=== PATIENT | female | born 1955 | race Caucasian/White ===

== ENCOUNTER → 2019-08-19 12:33 | Outpatient (CLI) | payer OTHER, SELFPAY ==
--- NOTE | 2019-08-19 12:36 | DI.RAD.S_ITS ---
PROCEDURE: XR HIP W PEL IF DONE RT 2V INDICATIONS: HIP PAIN TECHNIQUE: 2 views of the hip were acquired. COMPARISON: None. FINDINGS: Bones: No fractures or dislocations. Mild to moderate joint space narrowing. Mild sclerosis of the superior acetabular roof. Small osteophytes. No suspicious bony lesions. The visualized pelvic ring appears intact. Soft tissues: No suspicious soft tissue calcifications or masses. IMPRESSION: Mild to moderate degenerative change of the right hip. Dictated by: Conrado Huerta M.D. on 08/19/2019 at 13:27 Approved by: Conrado Huerta M.D. on 08/19/2019 at 13:28
== END ==
PROVIDERS: Visit Provider Nurse Practitioner Family
DX: M25.551 Pain in right hip (principal)
CPT/HCPCS: 73502

== ENCOUNTER → 2019-09-01 08:04 | Outpatient (CLI) | payer OTHER, SELFPAY ==
[2019-09-01 09:09] LABS: Hematocrit 37.5 % (36-46); Hemoglobin 13.1 g/dL (12.0-16.0); Mean Corpuscular Hemoglobin 31.6 PG (26-34); Mean Corpuscular Volume 90.2 fL (80-100); Platelet Count 185 X10^3/uL (150-400); Red Blood Cell Count 4.15 X10^6/uL (4.0-5.2); Red Cell Distribution Width 13.7 % (11.6-14.8)
[2019-09-01 09:34] LABS: Alanine Aminotransferase 28 IU/L (9-52); Albumin Globulin Ratio 1.4 (1.0-2.8); Alkaline Phosphatase 48 U/L (38-126); Aspartate Aminotransferase 31 IU/L (14-36); BUN Creatinine Ratio 25.7 (6-22); Bilirubin Total 0.6 mg/dL (0.2-1.3); Blood Urea Nitrogen 18 mg/dL (7-17); Calcium 9.3 mg/dL (8.4-10.2); Carbon Dioxide 30 mmol/L (22-32); Chloride 107 mmol/L (98-107); Cholesterol 161 mg/dL (140-199); Estimated Glomerular Filt Rate > 60.0 mL/min (>60); Globulin 2.8 g/dL (1.7-4.1); Glucose 74 mg/dL (80-110); HDL Cholesterol 53 mg/dL (40-60); HEMOLYSIS < 15 (0-50); LDL Cholesterol Calculated 95 mg/dL (<100); Potassium 4.2 mmol/L (3.4-5.1); Sodium 141 mmol/L (137-145); Total Protein 6.8 g/dL (6.3-8.2); Triglycerides 64 mg/dL (35-150)
== END ==
PROVIDERS: Visit Provider Nurse Practitioner Family
DX: Z00.00 Encounter for general adult medical examination without abnormal findings (principal); Z13.6 Encounter for screening for cardiovascular disorders
CPT/HCPCS: 36415; 80053; 80061; 85027

== ENCOUNTER → 2019-09-23 15:52 | Outpatient (CLI) | payer OTHER, SELFPAY ==
--- NOTE | 2019-09-23 15:55 | DI.MG.S_ITS ---
BILATERAL DIGITAL SCREENING MAMMOGRAM 3D/2D WITH CAD: 09/23/2019 CLINICAL: Routine screening. Comparison is made to exams dated: 02/11/2012 mammogram and 09/14/2009 mammogram - [facility]. There are scattered fibroglandular elements in both breasts. Current study was also evaluated with a Computer Aided Detection (CAD) system. No significant masses, calcifications, or other findings are seen in either breast. There has been no significant interval change. IMPRESSION: NEGATIVE There is no mammographic evidence of malignancy. A 1 year screening mammogram is recommended. This exam was interpreted at Station ID: [id number]. NOTE: For mammograms, a report in lay terms will be sent to the patient. Approximately 15% of breast malignancies will not be visualized mammographically. In the management of a palpable breast mass, a negative mammogram must not discourage biopsy of a clinically suspicious lesion. Electronically Signed By: May man/darline:09/23/2019 16:26:24 letter sent: Normal Exam ACR BI-RADS Category 1: Negative [id number]
== END ==
PROVIDERS: Visit Provider Nurse Practitioner Family
DX: Z12.31 Encounter for screening mammogram for malignant neoplasm of breast (principal)
CPT/HCPCS: 77063; 77067

== ENCOUNTER 2019-12-29 09:49 | Day surgery (SDC) | payer OTHER, SELFPAY ==
[2019-12-29] VITALS (10 sets, daily range): BP systolic 78–115; BP diastolic 40–69; PULSE 51–79; RESP 10–19; TEMP 36.2–36.8; O2SAT 96–100; BMI 23.9
--- NOTE | 2019-12-29 10:38 | PM.HP.1 ---
History of Present Illness History of Present Illness Date Patient Seen: 12/29/19 Time Patient Seen: 10:38 Chief complaint: [address] SCREENING COLONOSCOPY Narrative: The patient is a woman here for screening colonoscopy. She has never had a colonoscopy Patient History Medical History Ankle pain (Chronic) Chicken pox (Resolved) Foot pain (Chronic ~2016) Herpes (Inactive) Measles (Inactive) Mumps (Resolved) Surgical History Anesthesia (Resolved) History of tubal ligation (Resolved ~1991) Family & Social History Tobacco & Substance use: Smoking Status Never smoker alcohol intake current Meds Home Medications and Allergies Allergies Allergy/AdvReac Type Severity Reaction Status Date / Time No Known Drug Allergies Allergy Verified 12/29/19 10:21 Review of Systems Review of Systems ROS: Yes All systems reviewed with the patient and are negative except as otherwise documented Exam Narrative Exam Narrative: Pleasant cooperative patient no apparent distress. Lungs are clear to auscultation. No rales or rhonchi. Heart regular rate and rhythm no murmur gallop. Abdomen is soft nontender without mass. No obvious hernias. Patient is alert and oriented x3. Assessment & Plan Assessment & Plan narrative: The patient for a screening colonoscopy. I have discussed the procedure with them. Risks of bleeding, perforation which would necessitate major operation, failure to find remove all lesions, the potential tattoo were all discussed. All questions were answered. They wished to proceed.
[2019-12-29] MEDS: SODIUM CHLORIDE 0.9% 1,000 ML 200 ML IV (10:39)
--- NOTE | 2019-12-29 10:39 | PM.PREOP ---
Pre-operative Note Interval Note History & Physical reviewed/Exam performed by Physician: Yes Changes to H&P: No ASA Class (for procedural sedation): I
[2019-12-29] MEDS: fentaNYL 250 MCG/5 ML INJ IV (11:00)
[2019-12-29] MEDS: MIDAZOLAM 5 MG/ML VIAL 4 MG IV (11:00)
--- NOTE | 2019-12-29 11:18 | PM.OP.ENDO ---
Operative Date/Time/Diagnoses Date of procedure: 12/29/19 Time of procedure: 11:18 Pre-op diagnosis: Screening examination. This is her 1st colonoscopy. Post-op diagnosis: same (Diverticulosis) Procedure & Clinicians Study performed: Colonoscopy Same procedure as scheduled: Yes Indications: Screening Surgeon: Sadi Arango Procedure Notes SCOAP/Timeout: Performed Procedure in detail: The patient was placed in the left lateral decubitus position and underwent IV sedation directed by the surgeon consisting of fentanyl and Versed. Digital exam was remarkable for decreased sphincter tone.. The scope was inserted and advanced through the rectum into the sigmoid, descending, transverse, and ascending colon. The patient had extensive sigmoid diverticulosis. Her colon was quite tortuous through this region.. The cecum was reached identified by the ileocecal valve and the appendiceal opening. The ileocecal valve was not cannulated. The scope was gradually brought out. No Polyps were found. The scope ultimately was retroflexed in the rectum. The appearance was normal. The scope was removed and the patient tolerated the procedure well. The prep was good. Scope withdrawal time: 9-1/2 minutes Sedation minutes: 26 Findings: diverticulosis Specimen(s): none sent Complications: none Post-procedure Recommendations: Colonscopy in 10 years Follow up: as needed Disposition: PACU
--- NOTE | 2019-12-29 11:44 | SUR.PHASEI ---
Patient sitting up, awake but drowsy. Tolerating PO fluids without difficulty. Denies CP or SOB, denies abdominal pain. BP 106/63, MAP 73.
== END 2019-12-29 12:24 | disposition home or self-care (01) ==
PROVIDERS: PCP Nurse Practitioner Family; Referring Provider Specialist; Visit Provider Specialist
PROC: 0DJD8ZZ Inspection of Lower Intestinal Tract, Via Natural or Artificial Opening Endoscopic (ICD-10-PCS; CPT 45378; principal; 2019-12-29 10:45)
DX: Z12.11 Encounter for screening for malignant neoplasm of colon (principal); K57.30 Diverticulosis of large intestine without perforation or abscess without bleeding; K63.89 Other specified diseases of intestine
CPT/HCPCS: 45378; 99152; 99153; J2250; J3010

== ENCOUNTER → 2020-11-29 11:08 | Outpatient (CLI) | payer OTHER, SELFPAY ==
[2020-11-29] MEDS: COVID-19 VACC #1, MRNA(MOD) 100 MCG/0.5 ML VIAL IM (11:12)
== END ==
PROVIDERS: PCP Nurse Practitioner Family; Visit Provider Internal Medicine
DX: Z23 Encounter for immunization (principal)
CPT/HCPCS: 0011A; 91301

== ENCOUNTER → 2020-12-27 11:21 | Outpatient (CLI) | payer OTHER, SELFPAY ==
[2020-12-27] MEDS: COVID-19 VACC #2, MRNA(MOD) 100 MCG/0.5 ML VIAL IM (11:31)
== END ==
PROVIDERS: PCP Nurse Practitioner Family; Visit Provider Internal Medicine
DX: Z23 Encounter for immunization (principal)
CPT/HCPCS: 0012A; 91301

== ENCOUNTER → 2021-01-09 15:12 | Outpatient (CLI) | payer OTHER, SELFPAY | PROVIDERS: PCP Nurse Practitioner Family; Referring Provider Nurse Practitioner Family; Visit Provider Nurse Practitioner Family | DX: M85.851 Other specified disorders of bone density and structure, right thigh (principal); Z78.0 Asymptomatic menopausal state | CPT/HCPCS: 77080 ==

== ENCOUNTER → 2021-01-24 08:15 | Outpatient (CLI) | payer OTHER, SELFPAY ==
[2021-01-24 09:35] LABS: Hematocrit 38.2 % (36-46); Mean Corpuscular HGB Conc 34.1 % (30-36); Mean Corpuscular Hemoglobin 31.5 PG (26-34); Mean Corpuscular Volume 92.4 fL (80-100); Platelet Count 186 X10^3/uL (150-400); Red Blood Cell Count 4.14 X10^6/uL (4.0-5.2); Red Cell Distribution Width 14.1 % (11.6-14.8); White Blood Cell Count 5.2 X10^3/uL (4.5-11.0)
[2021-01-24 09:49] LABS: Alanine Aminotransferase 19 IU/L (<35); Albumin Globulin Ratio 1.4 (1.0-2.8); Alkaline Phosphatase 49 U/L (38-126); Aspartate Aminotransferase 32 IU/L (14-36); BUN Creatinine Ratio 27.3 (6-22); Bilirubin Total 0.4 mg/dL (0.2-1.3); Blood Urea Nitrogen 18 mg/dL (7-17); Calcium 9.3 mg/dL (8.4-10.2); Carbon Dioxide 29 mmol/L (22-32); Chloride 105 mmol/L (98-107); Cholesterol 185 mg/dL (140-199); Estimated Glomerular Filt Rate > 60.0 mL/min (>60); Globulin 2.8 g/dL (1.7-4.1); Glucose 84 mg/dL (80-110); HDL Cholesterol 62 mg/dL (40-60); HEMOLYSIS < 15 (0-50); LDL Cholesterol Calculated 111 mg/dL (<100); Potassium 3.9 mmol/L (3.4-5.1); Sodium 139 mmol/L (137-145); Total Protein 6.8 g/dL (6.3-8.2); Triglycerides 61 mg/dL (35-150)
== END ==
PROVIDERS: PCP Nurse Practitioner Family; Referring Provider Nurse Practitioner Family; Visit Provider Nurse Practitioner Family
DX: Z00.00 Encounter for general adult medical examination without abnormal findings (principal); Z13.6 Encounter for screening for cardiovascular disorders
CPT/HCPCS: 36415; 80053; 80061; 85027

== ENCOUNTER 2021-06-06 14:55 | Emergency (ER) | payer OTHER, SELFPAY ==
[2021-06-06 14:59] VITALS: BP 109/53; PULSE 54; RESP 22; TEMP 36.6; O2SAT 97
--- NOTE | 2021-06-06 15:05 | DI.RAD.S_ITS ---
PROCEDURE: XR TIBIA FIBULA LT 2V INDICATIONS: pain with wtbearing TECHNIQUE: 2 views of the tibia and fibula were acquired. COMPARISON: None. FINDINGS: Bones: No fractures or dislocations. No suspicious bony lesions. Soft tissues: No suspicious soft tissue calcifications or masses. IMPRESSION: No trauma found. Dictated by: Bernardo Goetz M.D. on 06/06/2021 at 16:33 Approved by: Bernardo Goetz M.D. on 06/06/2021 at 16:33
--- NOTE | 2021-06-06 18:27 | ED_ITS ---
HPI - Extremity Injury (Lower) General Chief Complaint: Extremity Injury, Lower Stated Complaint: left leg pain/cannot bear weight Time Seen by Provider: 06/06/21 18:09 Source: patient Mode of arrival: Ambulatory History of Present Illness HPI Narrative: Patient is a 65-year-old female here for evaluation of a left leg/knee pain. She states that today she was playing pickleball. Was during 1 of the games when she stepped wrong and afterwards has had discomfort. She states that she has all of the discomfort when she is standing. When she is lying down or not putting pressure on her leg the discomfort is much better and essentially gone. She did not fall. Describes the pain on the back of her leg in the upper portion of her calf. Related Data Home Medications Medication Instructions Recorded Confirmed No Known Home Medications 12/02/20 04/18/21 Allergies Allergy/AdvReac Type Severity Reaction Status Date / Time No Known Drug Allergies Allergy Verified 04/18/21 11:15 Review of Systems Constitutional Constitutional: Reports as per HPI Musculoskeletal Musculoskeletal: Reports as per HPI Integumentary/Breasts Skin/Breast: Reports system reviewed and no additional complaints, except as documented Neurologic Neurologic: Reports system reviewed and no additional complaints, except as documented Hematologic/Lymphatic On Anticoagulants: No Patient History Medical History Ankle pain Bowel incontinence (2009) Chicken pox Depression Encounter for wellness examination in adult (12/09/20) Foot pain (~2016) Herpes Measles Mumps Osteoarthritis (2019) Osteopenia after menopause (02/2021) Post-menopause Surgical History Anesthesia History of tubal ligation (~1991) Social History household members: spouse Smoking Status: Never smoker second hand exposure: No alcohol intake: current substance use type: does not use Smoking Status: Never smoker alcohol intake frequency: holidays/special occasions only Substance Use Type: does not use Exam Initial Vital Signs Initial Vital Signs: Vital Signs Temperature 97.9 F 06/06/21 14:59 Pulse Rate 54 L 06/06/21 14:59 Respiratory Rate 22 06/06/21 14:59 Blood Pressure 109/53 L 06/06/21 14:59 Pulse Oximetry 97 06/06/21 14:59 Const General: cooperative and comfortable HENMT Head: normal to inspection and normocephalic Eyes General: appearance normal, both eyes and all related structures Resp Effort & Inspection: normal respiratory effort Cardio Pulses: dorsalis pedis present on the left Skin General: no rashes or lesions noted Neuro General: patient alert, patient awake, patient oriented x3 and moves all extremities Speech: speech normal Motor: muscle tone normal throughout Sensory Exam: no sensory deficits noted Extrem General: normal to inspection and capillary refill normal Other: Patient is able to do a straight leg raise however it is difficult for her to do so. There does not appear to be any deficits in the quadriceps tendon or the patella tendon. She has discomfort on the upper portion of her calf muscle specifically dorsiflexion of the left leg. Her hamstring tendons appear to be intact. She does have tenderness over the medial hamstring tendon. She has no tenderness with palpation of the patella. No tenderness to palpation of the quadriceps nor patella tendon. No tenderness along the mediolateral joint lines. Her MCL PCL LCL and MCL all seem to be intact with functional testing. Psych Appearance: grossly normal Procedures Orthopedic Splinting/Casting Injury #1: Side: left Lower Extremity Injury Location: knee and lower leg Lower Extremity Immobilizer: knee immobilizer Other Orthopedic Equipment: crutches Post splinting neuro exam: intact Post splinting vascular exam: intact Placed by: Nursing Course Orders Ordered: ED Orders 06/06/21 15:05 XR tibia fibula LT 2V Stat Vital Signs Vital signs: Vital Signs - 8 hr 06/06/21 14:59 Temperature 97.9 F Pulse Rate 54 L Respiratory Rate 22 Blood Pressure 109/53 L Pulse Oximetry 97 MDM - Extremity Injury (Lower) Imaging Data Extremity x-ray #1: Radiologist's Impression: [address] [id number] ReportSigned Patient: Deepak Izaguirre#: [id number]: 10/05cct:[id number]/Sex: 65 / FDate of Service: 06/06/21Loc: EDAccession Number: [id number] Procedure: XR tibia fibula LT 2V Ordering Provider: Rivka Saucedo D.O. PROCEDURE: XR TIBIA FIBULA LT 2V INDICATIONS: pain with wtbearing TECHNIQUE: 2 views of the tibia and fibula were acquired. COMPARISON: None. FINDINGS: Bones: No fractures or dislocations. No suspicious bony lesions. Soft tissues: No suspicious soft tissue calcifications or masses. IMPRESSION: No trauma found. Dictated by: Bernardo Goetz M.D. on 06/06/2021 at 16:33 Approved by: Bernardo Goetz M.D. on 06/06/2021 at 16:33 [facility] Narrative Medical decision making narrative: Patient is neurovascularly intact. There is no fractures noted on the x-ray. The only real positive finding noted on the exam was tenderness along the medial hamstring tendon. Her extensor mechanism appears to be intact. She has no effusion. She was placed in a knee immobilizer and given crutches for her comfort. Will have her contact her primary doctor for follow-up and to discuss further workup to include potential referral to see Physical therapy/have an MRI/Orthopedics. Patient was given return precautions. She expressed understanding agreement. Discharge Plan Departure Patient Disposition: Home Clinical Impression: Knee pain, left Instructions: How to Use Crutches, DI for Knee Pain, How to Use a Knee Immobilizer Activity Restrictions/Additional Instructions: There was no fractures on the x-ray which mean that you can walk on your leg as tolerated. Use the crutches and knee immobilizer as directed. Contact your primary doctor for a follow-up especially if your symptoms do not improve in the next couple days as you will most likely need further evaluation with physical therapy or potentially even an MRI. Return to the emergency department for any new or worsening symptoms Prescriptions: No Action No Known Home Medications RF: 0 Referrals: Rachael Alexander ARNP [Primary Care Provider] -
== END 2021-06-06 19:12 | disposition home or self-care (01) ==
PROVIDERS: Emergency Provider Emergency Medicine; PCP Nurse Practitioner Family
DX: M25.562 Pain in left knee (principal); X50.1XXA Overexertion from prolonged static or awkward postures, initial encounter; Y93.69 Activity, other involving other sports and athletics played as a team or group
CPT/HCPCS: 73590; 99283

== ENCOUNTER 2021-08-17 13:45 | Outpatient (RCR) | payer OTHER, SELFPAY ==
--- NOTE | 2021-05-18 14:41 | PT.OIE ---
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) Pain in unspecified lower leg (05/18/21) Past Medical History (Last Updated 04/18/21 @ 11:42 by NATALIIA Foley) Ankle pain Bowel incontinence (2009) Chicken pox Depression Encounter for wellness examination in adult (12/09/20) Foot pain (~2016) Herpes History of tubal ligation (~1991) Measles Mumps Osteoarthritis (2019) Osteopenia after menopause (02/2021) Post-menopause Past Surgical History (Last Reviewed 12/29/19 @ 10:38 by Sadi Arango MD) Anesthesia History of tubal ligation (~1991) Visit Care Team Role Provider Type NATALIIA Foley Attending Provider Advanced Curb Builder Primary Care Provider Referring Provider Specialty: Family Practice Address: [address] [place] [address] Email: [email or web address] Physical Therapy Initial Evaluation PT-OP-A Visit Information Start: 05/18/21 13:45 Freq: Status: Active Protocol: Document 05/18/21 13:45 AMB (Rec: 05/21/21 14:41 AMB [email or web address]) Out-Patient Physical Therapy Visit Information Visit Information Visit Type Initial Evaluation Visit Start Time 13:45 Visit Stop Time 14:30 Total Visit Minutes 45 Visit Number 1 PT-OP-B Current Condition Start: 05/18/21 13:45 Freq: Status: Active Protocol: Document 05/18/21 13:45 AMB (Rec: 05/18/21 13:58 AMB [id number]) Current Condition History of Current Condition Onset Date A month Current Complaints bilateral gastelum/lateral thigh pain History of Current Condition Bilateral leg pain seems to be associated with pickle ball. Stopped for a week and that seemed to help. Pain has been going on for at least a month . A month ago couldn't walk for a couple days. Has been playing pickleball for a year for 2-3 times per week, then increased to 4-5x/week and that's when pain started, doesn't hurt during pickle ball, but a few hours later hurts, variable nature sometimes hurts sometimes doesn't. Getting up from sitting/ squatting are quite challenging right now. Outside of thighs and shins, shins are the worst, both left and right. Prior Treatments and Tests Tried new shoes. Treatment Goals Patient/Caregiver Goals Play pickleball without bilateral leg pain Prior Functional Status Baseline Function- ADL's Independent Baseline Function- Mobility Independent Current Functional Impairments (Reported) Functional Limitations- ADL's Difficulty moving from sit to stand especially after having been sitting for a while Personal Factors Other Personal Factors That May Effect history of plantar fasciitis, Therapy/Recovery over pronation PT-OP-C Subjective Start: 05/18/21 13:45 Freq: Status: Active Protocol: Document 05/18/21 13:45 AMB (Rec: 05/21/21 14:41 AMB [email or web address]) Patient Questionnaires Lower Extremity Functional Scale LEFS Score 44 LEFS Impairment 40 to 59% Impaired (Score 32- 47) PT-OP-F Manual Assessment Start: 05/18/21 13:45 Freq: Status: Active Protocol: Document 05/18/21 13:45 AMB (Rec: 05/21/21 14:41 AMB [email or web address]) Manual Assessments Soft Tissue Assessment Soft Tissue Mobility Assessment Tenderness over tibialis anterior, calves, and IT band, worst at tibialis anterior PT-OP-G Mobility & Gait Start: 05/18/21 13:45 Freq: Status: Active Protocol: Document 05/18/21 13:45 AMB (Rec: 05/21/21 14:41 AMB [email or web address]) OP Gait Assessment Comments Gait Comments Over pronation in standing PT-OP-K Range of Motion Start: 05/18/21 13:45 Freq: Status: Active Protocol: Document 05/18/21 13:45 AMB (Rec: 05/21/21 14:41 AMB [email or web address]) Ankle and Foot Goniometric Range of Motion Ankle and Foot ROM Limitations Comments Good hip, knee and ankle mobility throughout PT-OP-M Strength Start: 05/18/21 13:45 Freq: Status: Active Protocol: Document 05/18/21 13:45 AMB (Rec: 05/21/21 14:41 AMB [email or web address]) Hip Strength Hip Manual Muscle Testing Right Flexion (L2) 4+ Good+ Extension (S1) 4 Good Abduction 4 Good Left Flexion (L2) 4+ Good+ Extension (S1) 4+ Good+ Abduction 4 Good Ankle/Foot Strength Ankle and Foot Manual Muscle Testing Right Dorsiflexion (L4) 4- Good- Plantarflexion (S1) 4 Good Inversion 4 Good Eversion (S1) 4 Good Comments mild discomfort with dorsiflexion bilaterally Left Dorsiflexion (L4) 4- Good- Plantarflexion (S1) 4 Good Inversion 4 Good Eversion (S1) 4 Good PT-OP-T Assessment and Plan Start: 05/18/21 13:45 Freq: Status: Active Protocol: Document 05/18/21 13:45 AMB (Rec: 05/21/21 14:41 AMB [email or web address]) Physical Therapy Assessment Rehab Potential Rehabilitation Potential Good Evaluation Complexity Number of Personal Factors/Comorbidities 1-2 Number of Body Systems Impaired 4 or More Clinical Presentation at Evaluation Stable Impairments Impairments Pain,Posture,Soft Tissue Mobility,Strength Goals Three Impairment HEP Short Term Goal (STG) Deepak will be independent and consistent with her HEP to stretch and strengthen her bilateral LEs. STG Duration 4 weeks Two Impairment Mobility Short Term Goal (STG) Deepak will move from sit to stand with 2/10 pain or less. STG Duration 4 weeks [facility] Goal (LTG) Deepak will move from sit to stand without pain in her lower legs. LTG Duration 8 weeks One Impairment Pain Short Term Goal (STG) Deepak will play pickleball 4x/ week without an increase in her baseline pain. STG Duration 4 weeks Assessment Summary Assessment Deepak attends physial therapy with bilateral pain and tightnes in anterior tibialis with some pain and tightness in bilateral calves and IT bands. Her joint mobility looks good, if not slightly hypermobile, especially with over pronation in her feet. She would benefit from PT to reduce the inflammation most likely caused by repetetive strain from her sporting activities, and then to strengthen, especially at lateral hips, so that she can return to exercise with less pain. Physical Therapy Plan Frequency and Duration Frequency of Treatment 2x/Week Duration of Treatment 8 weeks Plan of Care Start Date 05/18/21 Plan of Care End Date 07/13/21 Therapeutic Interventions Therapeutic Interventions Gait Training,Home Exercise Program,Manual Therapy, Neuromuscular Re-education, Self-Care/Home Management,Soft Tissue Mobilization, Therapeutic Activities, Therapeutic Exercises Modalities Cold Pack/Ice Massage,Electric Stimulation,Hot Packs, Ultrasound Next Visit Focus/Plan Next Note Type Treatment Note Next Visit Plan Follow up on tibialis anterior and IT band stretches
--- NOTE | 2021-05-18 14:42 | PT.OPPOC ---
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) Pain in unspecified lower leg (05/18/21) Visit Care Team Role Provider Type NATALIIA Foley Attending Provider Advanced Manager Pulmonary Primary Care Provider Referring Provider Specialty: Family Practice Address: [address] [place] [address], [id number] Email: [email or web address] Plan Of Care PT-OP-T Assessment and Plan Start: 05/18/21 13:45 Freq: Status: Active Protocol: Document 05/18/21 13:45 AMB (Rec: 05/21/21 14:41 AMB [email or web address]) Physical Therapy Assessment Rehab Potential Rehabilitation Potential Good Evaluation Complexity Number of Personal Factors/Comorbidities 1-2 Number of Body Systems Impaired 4 or More Clinical Presentation at Evaluation Stable Impairments Impairments Pain,Posture,Soft Tissue Mobility,Strength Goals Three Impairment HEP Short Term Goal (STG) Deepak will be independent and consistent with her HEP to stretch and strengthen her bilateral LEs. STG Duration 4 weeks Two Impairment Mobility Short Term Goal (STG) Deepak will move from sit to stand with 2/10 pain or less. STG Duration 4 weeks Funeral Assistant Goal (LTG) Deepak will move from sit to stand without pain in her lower legs. LTG Duration 8 weeks One Impairment Pain Short Term Goal (STG) Deepak will play pickleball 4x/ week without an increase in her baseline pain. STG Duration 4 weeks Assessment Summary Assessment Deepak attends physial therapy with bilateral pain and tightnes in anterior tibialis with some pain and tightness in bilateral calves and IT bands. Her joint mobility looks good, if not slightly hypermobile, especially with over pronation in her feet. She would benefit from PT to reduce the inflammation most likely caused by repetetive strain from her sporting activities, and then to strengthen, especially at lateral hips, so that she can return to exercise with less pain. Physical Therapy Plan Frequency and Duration Frequency of Treatment 2x/Week Duration of Treatment 8 weeks Plan of Care Start Date 05/18/21 Plan of Care End Date 07/13/21 Therapeutic Interventions Therapeutic Interventions Gait Training,Home Exercise Program,Manual Therapy, Neuromuscular Re-education, Self-Care/Home Management,Soft Tissue Mobilization, Therapeutic Activities, Therapeutic Exercises Modalities Cold Pack/Ice Massage,Electric Stimulation,Hot Packs, Ultrasound Next Visit Focus/Plan Next Note Type Treatment Note Next Visit Plan Follow up on tibialis anterior and IT band stretches Plan of Care Dates Plan of Care Start Date 05/18/21 Plan of Care End Date 07/13/21 Electronically Signed by: Teri Anne, PT 05/21/21 [id number] Please Sign and Return: I have reviewed this Plan of Care and certify that the skilled therapy services above are required to meet the patient?s needs. Physician Signature Date Printed Name and Credentials Clinical Instructor Signature Printed Name and Credentials
--- NOTE | 2021-05-24 09:25 | PT.OTN ---
Current Diagnoses Iliotibial band syndrome, unspecified leg (05/24/21) Anterior tibial syndrome, unspecified leg (05/24/21) Pain in unspecified lower leg (05/24/21) Physical Therapy Treatment Note PT-OP-A Visit Information Start: 05/18/21 13:45 Freq: Status: Active Protocol: Document 05/24/21 08:15 AMB (Rec: 05/24/21 08:52 AMB [id number]) Out-Patient Physical Therapy Visit Information Visit Information Visit Type Treatment Note Visit Start Time 08:15 Visit Stop Time 09:00 Total Visit Minutes 45 Visit Number 2 PT-OP-B Current Condition Start: 05/18/21 13:45 Freq: Status: Active Protocol: Document 05/18/21 13:45 AMB (Rec: 05/18/21 13:58 AMB [id number]) Current Condition History of Current Condition Onset Date A month Current Complaints bilateral gastelum/lateral thigh pain History of Current Condition Bilateral leg pain seems to be associated with pickle ball. Stopped for a week and that seemed to help. Pain has been going on for at least a month . A month ago couldn't walk for a couple days. Has been playing pickleball for a year for 2-3 times per week, then increased to 4-5x/week and that's when pain started, doesn't hurt during pickle ball, but a few hours later hurts, variable nature sometimes hurts sometimes doesn't. Getting up from sitting/ squatting are quite challenging right now. Outside of thighs and shins, shins are the worst, both left and right. Prior Treatments and Tests Tried new shoes. Treatment Goals Patient/Caregiver Goals Play pickleball without bilateral leg pain Prior Functional Status Baseline Function- ADL's Independent Baseline Function- Mobility Independent Current Functional Impairments (Reported) Functional Limitations- ADL's Difficulty moving from sit to stand especially after having been sitting for a while Personal Factors Other Personal Factors That May Effect history of plantar fasciitis, Therapy/Recovery over pronation PT-OP-C Subjective Start: 05/18/21 13:45 Freq: Status: Active Protocol: Document 05/24/21 08:15 AMB (Rec: 05/24/21 09:25 AMB [email or web address]) OP-PT Subjective Patient Comments Patient Comments Deepak states she is feeling better, she has only played pickle ball 2x in the last week, and has been working on her stretches and rolling which has really been helping. PT-OP-F Manual Assessment Start: 05/18/21 13:45 Freq: Status: Active Protocol: Document 05/18/21 13:45 AMB (Rec: 05/21/21 14:41 AMB [email or web address]) Manual Assessments Soft Tissue Assessment Soft Tissue Mobility Assessment Tenderness over tibialis anterior, calves, and IT band, worst at tibialis anterior PT-OP-G Mobility & Gait Start: 05/18/21 13:45 Freq: Status: Active Protocol: Document 05/18/21 13:45 AMB (Rec: 05/21/21 14:41 AMB [email or web address]) OP Gait Assessment Comments Gait Comments Over pronation in standing PT-OP-K Range of Motion Start: 05/18/21 13:45 Freq: Status: Active Protocol: Document 05/18/21 13:45 AMB (Rec: 05/21/21 14:41 AMB [email or web address]) Ankle and Foot Goniometric Range of Motion Ankle and Foot ROM Limitations Comments Good hip, knee and ankle mobility throughout PT-OP-M Strength Start: 05/18/21 13:45 Freq: Status: Active Protocol: Document 05/18/21 13:45 AMB (Rec: 05/21/21 14:41 AMB [email or web address]) Hip Strength Hip Manual Muscle Testing Right Flexion (L2) 4+ Good+ Extension (S1) 4 Good Abduction 4 Good Left Flexion (L2) 4+ Good+ Extension (S1) 4+ Good+ Abduction 4 Good Ankle/Foot Strength Ankle and Foot Manual Muscle Testing Right Dorsiflexion (L4) 4- Good- Plantarflexion (S1) 4 Good Inversion 4 Good Eversion (S1) 4 Good Comments mild discomfort with dorsiflexion bilaterally Left Dorsiflexion (L4) 4- Good- Plantarflexion (S1) 4 Good Inversion 4 Good Eversion (S1) 4 Good PT-OP-Q Treatments Start: 05/18/21 13:45 Freq: Status: Active Protocol: Document 05/24/21 08:15 AMB (Rec: 05/24/21 09:25 AMB [email or web address]) Therapeutic Exercises Supine Exercises 3 Supine Exercise Name hamstring and calf stretch Side left Reps/Minutes 2' Comments passive 2 Supine Exercise Name Hip flexor stretch Side bilateral Reps/Minutes 30x4 Comments HEP 1 Supine Exercise Name IT band stretch with band Side bilateral Reps/Minutes 30x3 Comments HEP Sidelying Exercises 1 Sidelying Exercise Name hip abd Reps/Minutes 2x10 Standing Exercises 2 Standing Exercise Name tibials ant stretch Reps/Minutes 30x2 Comments HEP 1 Standing Exercise Name calf stretch against wall Reps/Minutes 30x2 Manual Therapy Treatment Soft Tissue Mobilization 1 Body Location rolling, then MFR and TrP release Comments bilateral IT Band, tibialis ant, calf, hamstrings PT-OP-T Assessment and Plan Start: 05/18/21 13:45 Freq: Status: Active Protocol: Document 05/24/21 08:15 AMB (Rec: 05/24/21 09:25 AMB [email or web address]) Physical Therapy Assessment Assessment Summary Assessment Deepak continues to have tenderness throughout her bilateral lower extremities but has been working on rolling a lot and bilateral gastelum pain has improved, encouraged to continue stretching rolling thighs before a return to more frequent pickle ball practice. Physical Therapy Plan Next Visit Focus/Plan Next Note Type Treatment Note Next Visit Plan Follow up on hip abd and hip flexor stretch, could start foot intrinsic strengthening. Continue instruction in rolling.
--- NOTE | 2021-05-26 13:02 | PT.OTN ---
Current Diagnoses Iliotibial band syndrome, unspecified leg (05/26/21) Anterior tibial syndrome, unspecified leg (05/26/21) Pain in unspecified lower leg (05/26/21) Physical Therapy Treatment Note PT-OP-A Visit Information Start: 05/18/21 13:45 Freq: Status: Active Protocol: Document 05/26/21 12:16 SP (Rec: 05/26/21 15:37 SP [id number]) Out-Patient Physical Therapy Visit Information Visit Information Visit Type Treatment Note Visit Start Time 12:16 Visit Stop Time 13:02 Total Visit Minutes 46 Visit Number 3 Number of DIRECTOR BUSINESS MANAGEMENT Visits 1 PT-OP-B Current Condition Start: 05/18/21 13:45 Freq: Status: Active Protocol: Document 05/18/21 13:45 AMB (Rec: 05/18/21 13:58 AMB [id number]) Current Condition History of Current Condition Onset Date A month Current Complaints bilateral gastelum/lateral thigh pain History of Current Condition Bilateral leg pain seems to be associated with pickle ball. Stopped for a week and that seemed to help. Pain has been going on for at least a month . A month ago couldn't walk for a couple days. Has been playing pickleball for a year for 2-3 times per week, then increased to 4-5x/week and that's when pain started, doesn't hurt during pickle ball, but a few hours later hurts, variable nature sometimes hurts sometimes doesn't. Getting up from sitting/ squatting are quite challenging right now. Outside of thighs and shins, shins are the worst, both left and right. Prior Treatments and Tests Tried new shoes. Treatment Goals Patient/Caregiver Goals Play pickleball without bilateral leg pain Prior Functional Status Baseline Function- ADL's Independent Baseline Function- Mobility Independent Current Functional Impairments (Reported) Functional Limitations- ADL's Difficulty moving from sit to stand especially after having been sitting for a while Personal Factors Other Personal Factors That May Effect history of plantar fasciitis, Therapy/Recovery over pronation PT-OP-C Subjective Start: 05/18/21 13:45 Freq: Status: Active Protocol: Document 05/26/21 12:16 SP (Rec: 05/26/21 15:37 SP [id number]) OP-PT Subjective Patient Comments Patient Comments Pt states feeling better. Unable to do the front hip stretch off bed due to is to low to floor, hoping to learn an alternative. PT-OP-F Manual Assessment Start: 05/18/21 13:45 Freq: Status: Active Protocol: Document 05/18/21 13:45 AMB (Rec: 05/21/21 14:41 AMB [email or web address]) Manual Assessments Soft Tissue Assessment Soft Tissue Mobility Assessment Tenderness over tibialis anterior, calves, and IT band, worst at tibialis anterior PT-OP-G Mobility & Gait Start: 05/18/21 13:45 Freq: Status: Active Protocol: Document 05/18/21 13:45 AMB (Rec: 05/21/21 14:41 AMB [email or web address]) OP Gait Assessment Comments Gait Comments Over pronation in standing PT-OP-K Range of Motion Start: 05/18/21 13:45 Freq: Status: Active Protocol: Document 05/18/21 13:45 AMB (Rec: 05/21/21 14:41 AMB [email or web address]) Ankle and Foot Goniometric Range of Motion Ankle and Foot ROM Limitations Comments Good hip, knee and ankle mobility throughout PT-OP-M Strength Start: 05/18/21 13:45 Freq: Status: Active Protocol: Document 05/18/21 13:45 AMB (Rec: 05/21/21 14:41 AMB [email or web address]) Hip Strength Hip Manual Muscle Testing Right Flexion (L2) 4+ Good+ Extension (S1) 4 Good Abduction 4 Good Left Flexion (L2) 4+ Good+ Extension (S1) 4+ Good+ Abduction 4 Good Ankle/Foot Strength Ankle and Foot Manual Muscle Testing Right Dorsiflexion (L4) 4- Good- Plantarflexion (S1) 4 Good Inversion 4 Good Eversion (S1) 4 Good Comments mild discomfort with dorsiflexion bilaterally Left Dorsiflexion (L4) 4- Good- Plantarflexion (S1) 4 Good Inversion 4 Good Eversion (S1) 4 Good PT-OP-Q Treatments Start: 05/18/21 13:45 Freq: Status: Active Protocol: Document 05/26/21 12:16 SP (Rec: 05/26/21 15:37 SP [id number]) Therapeutic Exercises Supine Exercises 3 Supine Exercise Name hamstring and calf stretch Side left Equipment Used w/ her blue Tb loop Reps/Minutes 30 x3 Comments self passive stretch- reviewed 2 Supine Exercise Name Hip flexor stretch Side bilateral Equipment Used sideways off table holding opp knee to chest Reps/Minutes 30x4 Comments reviewed HEP 1 Supine Exercise Name IT band stretch with band Side bilateral Reps/Minutes 30x3 Comments reviewed HEP Sidelying Exercises 1 Sidelying Exercise Name hip abd Side bilateral Reps/Minutes 2x10 Comments cued stacked alignment and hip abd lift (like slide heel on wall) Sitting Exercises arch lift Sitting Exercise Name added to HEP Side bilateral Reps/Minutes 5 sec x5 Comments good response Standing Exercises lunge hip flex stretch Standing Exercise Name lunge vs 1/2 kneel w/ hip IR for added TFL stretch Side bilateral Reps/Minutes 30 x3 Comments feels good 2 Standing Exercise Name tibials ant stretch Reps/Minutes 30x2 Comments reviewed HEP 1 Standing Exercise Name calf stretch against wall Reps/Minutes 30x2 Comments reviewed HEP Other Exercises 1/2 knee hip flex stretch Other Exercise Name L>R w/ IR for added TFL stretch this feels good Side bilateral Reps/Minutes 30 x2 Comments added as alternative to HEP Manual Therapy Treatment Soft Tissue Mobilization 1 Body Location rolling, then MFR and TrP release Body Position seated, standing: rolling pin, theracane, racquetball Comments bilateral IT Band, tibialis ant, calf, hamstrings -education on self application review PT-OP-T Assessment and Plan Start: 05/18/21 13:45 Freq: Status: Active Protocol: Document 05/26/21 12:16 SP (Rec: 05/26/21 15:37 SP [id number]) Physical Therapy Assessment Goals Three Impairment HEP Short Term Goal (STG) Deepak will be independent and consistent with her HEP to stretch and strengthen her bilateral LEs. STG Duration 4 weeks Two Impairment Mobility Short Term Goal (STG) Deepak will move from sit to stand with 2/10 pain or less. STG Duration 4 weeks Car Washer Goal (LTG) Deepak will move from sit to stand without pain in her lower legs. LTG Duration 8 weeks One Impairment Pain Short Term Goal (STG) Deepak will play pickleball 4x/ week without an increase in her baseline pain. STG Duration 4 weeks Assessment Summary Assessment Pt responded well to HEP review of tracie stretch off side of bed and alternative lunge positioning due to low bed and challenged by acquiring the hip flexor stretch. Discussed and instructed druing her performance of self STMs to TFL, ITB, HS using rolling stick and racquetball wall. Cued proper alignment with hip ABD. Intiated foot intrinics to give inferior stability with good response. She stated use to do when had plantar facitis. Physical Therapy Plan Frequency and Duration Frequency of Treatment 2x/Week Duration of Treatment 8 weeks Plan of Care Start Date 05/18/21 Plan of Care End Date 07/13/21 Therapeutic Interventions Therapeutic Interventions Gait Training,Home Exercise Program,Manual Therapy, Neuromuscular Re-education, Self-Care/Home Management,Soft Tissue Mobilization, Therapeutic Activities, Therapeutic Exercises Modalities Cold Pack/Ice Massage,Electric Stimulation,Hot Packs, Ultrasound Next Visit Focus/Plan Next Note Type Treatment Note Next Visit Plan Review HEP and added foot intrinics. Continue instruction in rolling.
--- NOTE | 2021-05-29 11:45 | PT.OTN ---
Current Diagnoses Iliotibial band syndrome, unspecified leg (05/29/21) Anterior tibial syndrome, unspecified leg (05/29/21) Pain in unspecified lower leg (05/29/21) Physical Therapy Treatment Note PT-OP-A Visit Information Start: 05/18/21 13:45 Freq: Status: Active Protocol: Document 05/29/21 08:15 AMB (Rec: 05/29/21 09:01 AMB [id number]) Out-Patient Physical Therapy Visit Information Visit Information Visit Type Treatment Note Visit Start Time 08:15 Visit Stop Time 09:00 Total Visit Minutes 45 Visit Number 4 PT-OP-B Current Condition Start: 05/18/21 13:45 Freq: Status: Active Protocol: Document 05/18/21 13:45 AMB (Rec: 05/18/21 13:58 AMB [id number]) Current Condition History of Current Condition Onset Date A month Current Complaints bilateral gastelum/lateral thigh pain History of Current Condition Bilateral leg pain seems to be associated with pickle ball. Stopped for a week and that seemed to help. Pain has been going on for at least a month . A month ago couldn't walk for a couple days. Has been playing pickleball for a year for 2-3 times per week, then increased to 4-5x/week and that's when pain started, doesn't hurt during pickle ball, but a few hours later hurts, variable nature sometimes hurts sometimes doesn't. Getting up from sitting/ squatting are quite challenging right now. Outside of thighs and shins, shins are the worst, both left and right. Prior Treatments and Tests Tried new shoes. Treatment Goals Patient/Caregiver Goals Play pickleball without bilateral leg pain Prior Functional Status Baseline Function- ADL's Independent Baseline Function- Mobility Independent Current Functional Impairments (Reported) Functional Limitations- ADL's Difficulty moving from sit to stand especially after having been sitting for a while Personal Factors Other Personal Factors That May Effect history of plantar fasciitis, Therapy/Recovery over pronation PT-OP-C Subjective Start: 05/18/21 13:45 Freq: Status: Active Protocol: Document 05/29/21 08:15 AMB (Rec: 05/29/21 11:43 AMB [id number]) OP-PT Subjective Patient Comments Patient Comments Pt is feeling better, but hasn 't been playing as much pickleball. Is planning to walk the loop at [facility] later in the week. PT-OP-F Manual Assessment Start: 05/18/21 13:45 Freq: Status: Active Protocol: Document 05/18/21 13:45 AMB (Rec: 05/21/21 14:41 AMB [email or web address]) Manual Assessments Soft Tissue Assessment Soft Tissue Mobility Assessment Tenderness over tibialis anterior, calves, and IT band, worst at tibialis anterior PT-OP-G Mobility & Gait Start: 05/18/21 13:45 Freq: Status: Active Protocol: Document 05/18/21 13:45 AMB (Rec: 05/21/21 14:41 AMB [email or web address]) OP Gait Assessment Comments Gait Comments Over pronation in standing PT-OP-K Range of Motion Start: 05/18/21 13:45 Freq: Status: Active Protocol: Document 05/18/21 13:45 AMB (Rec: 05/21/21 14:41 AMB [email or web address]) Ankle and Foot Goniometric Range of Motion Ankle and Foot ROM Limitations Comments Good hip, knee and ankle mobility throughout PT-OP-M Strength Start: 05/18/21 13:45 Freq: Status: Active Protocol: Document 05/18/21 13:45 AMB (Rec: 05/21/21 14:41 AMB [email or web address]) Hip Strength Hip Manual Muscle Testing Right Flexion (L2) 4+ Good+ Extension (S1) 4 Good Abduction 4 Good Left Flexion (L2) 4+ Good+ Extension (S1) 4+ Good+ Abduction 4 Good Ankle/Foot Strength Ankle and Foot Manual Muscle Testing Right Dorsiflexion (L4) 4- Good- Plantarflexion (S1) 4 Good Inversion 4 Good Eversion (S1) 4 Good Comments mild discomfort with dorsiflexion bilaterally Left Dorsiflexion (L4) 4- Good- Plantarflexion (S1) 4 Good Inversion 4 Good Eversion (S1) 4 Good PT-OP-Q Treatments Start: 05/18/21 13:45 Freq: Status: Active Protocol: Document 05/29/21 08:15 AMB (Rec: 05/29/21 11:43 AMB [id number]) Therapeutic Exercises Supine Exercises 4 Supine Exercise Name calf stretch Reps/Minutes 30x2 3 Supine Exercise Name hamstring and calf stretch Side left Equipment Used w/ her blue Tb loop Reps/Minutes 30 x3 Comments self passive stretch- reviewed Standing Exercises lunge hip flex stretch Standing Exercise Name lunge vs 1/2 kneel or on stair Side bilateral Reps/Minutes 30 x3 Comments feels good 1 Standing Exercise Name calf stretch against wall, or on ALISHA Reps/Minutes 30x2 Comments reviewed HEP Manual Therapy Treatment Soft Tissue Mobilization 1 Body Location rolling, then MFR and TrP release Body Position seated, standing: rolling pin, theracane, racquetball Comments bilateral IT Band, tibialis ant, calf, hamstrings -education on self application review--- focused on calf today PT-OP-T Assessment and Plan Start: 05/18/21 13:45 Freq: Status: Active Protocol: Document 05/29/21 08:15 AMB (Rec: 05/29/21 09:01 AMB [id number]) Physical Therapy Assessment Goals Three Impairment HEP Short Term Goal (STG) Deepak will be independent and consistent with her HEP to stretch and strengthen her bilateral LEs. STG Duration 4 weeks Two Impairment Mobility Short Term Goal (STG) Deepak will move from sit to stand with 2/10 pain or less. STG Duration 4 weeks Refinery Operator Helper Goal (LTG) Deepak will move from sit to stand without pain in her lower legs. LTG Duration 8 weeks One Impairment Pain Short Term Goal (STG) Deepak will play pickleball 4x/ week without an increase in her baseline pain. STG Duration 4 weeks Assessment Summary Assessment Pt continuing to have lateral L calf pain, but otherwise pain has decreased. She is not playing pickle ball as much, but is ok with that at this point. Physical Therapy Plan Next Visit Focus/Plan Next Note Type Treatment Note Next Visit Plan Follow up on calf pain with moving from a squatting position to standing, follow up on calf tightness and return to increased exercise
--- NOTE | 2021-06-01 13:07 | PT.OTN ---
Current Diagnoses Iliotibial band syndrome, unspecified leg (06/01/21) Anterior tibial syndrome, unspecified leg (06/01/21) Pain in unspecified lower leg (06/01/21) Physical Therapy Treatment Note PT-OP-A Visit Information Start: 05/18/21 13:45 Freq: Status: Active Protocol: Document 06/01/21 12:16 SP (Rec: 06/01/21 13:20 SP [id number]) Out-Patient Physical Therapy Visit Information Visit Information Visit Type Treatment Note Visit Start Time 12:16 Visit Stop Time 13:07 Total Visit Minutes 51 Visit Number 5 Number of OIL CHANGE TECHNICIAN Visits 1 PT-OP-B Current Condition Start: 05/18/21 13:45 Freq: Status: Active Protocol: Document 05/18/21 13:45 AMB (Rec: 05/18/21 13:58 AMB [id number]) Current Condition History of Current Condition Onset Date A month Current Complaints bilateral gastelum/lateral thigh pain History of Current Condition Bilateral leg pain seems to be associated with pickle ball. Stopped for a week and that seemed to help. Pain has been going on for at least a month . A month ago couldn't walk for a couple days. Has been playing pickleball for a year for 2-3 times per week, then increased to 4-5x/week and that's when pain started, doesn't hurt during pickle ball, but a few hours later hurts, variable nature sometimes hurts sometimes doesn't. Getting up from sitting/ squatting are quite challenging right now. Outside of thighs and shins, shins are the worst, both left and right. Prior Treatments and Tests Tried new shoes. Treatment Goals Patient/Caregiver Goals Play pickleball without bilateral leg pain Prior Functional Status Baseline Function- ADL's Independent Baseline Function- Mobility Independent Current Functional Impairments (Reported) Functional Limitations- ADL's Difficulty moving from sit to stand especially after having been sitting for a while Personal Factors Other Personal Factors That May Effect history of plantar fasciitis, Therapy/Recovery over pronation PT-OP-C Subjective Start: 05/18/21 13:45 Freq: Status: Active Protocol: Document 06/01/21 12:16 SP (Rec: 06/01/21 13:20 SP [id number]) OP-PT Subjective Patient Comments Patient Comments Pt stated compliant with HEP, wants to get hand outs for calf stretches and hip flexor stretch for help at home visual. Her hip pain is easing up alot but still has hard time getting out chair without arms to help. Patient Reported Progress Improving PT-OP-F Manual Assessment Start: 05/18/21 13:45 Freq: Status: Active Protocol: Document 05/18/21 13:45 AMB (Rec: 05/21/21 14:41 AMB [email or web address]) Manual Assessments Soft Tissue Assessment Soft Tissue Mobility Assessment Tenderness over tibialis anterior, calves, and IT band, worst at tibialis anterior PT-OP-G Mobility & Gait Start: 05/18/21 13:45 Freq: Status: Active Protocol: Document 05/18/21 13:45 AMB (Rec: 05/21/21 14:41 AMB [email or web address]) OP Gait Assessment Comments Gait Comments Over pronation in standing PT-OP-K Range of Motion Start: 05/18/21 13:45 Freq: Status: Active Protocol: Document 05/18/21 13:45 AMB (Rec: 05/21/21 14:41 AMB [email or web address]) Ankle and Foot Goniometric Range of Motion Ankle and Foot ROM Limitations Comments Good hip, knee and ankle mobility throughout PT-OP-M Strength Start: 05/18/21 13:45 Freq: Status: Active Protocol: Document 05/18/21 13:45 AMB (Rec: 05/21/21 14:41 AMB [email or web address]) Hip Strength Hip Manual Muscle Testing Right Flexion (L2) 4+ Good+ Extension (S1) 4 Good Abduction 4 Good Left Flexion (L2) 4+ Good+ Extension (S1) 4+ Good+ Abduction 4 Good Ankle/Foot Strength Ankle and Foot Manual Muscle Testing Right Dorsiflexion (L4) 4- Good- Plantarflexion (S1) 4 Good Inversion 4 Good Eversion (S1) 4 Good Comments mild discomfort with dorsiflexion bilaterally Left Dorsiflexion (L4) 4- Good- Plantarflexion (S1) 4 Good Inversion 4 Good Eversion (S1) 4 Good PT-OP-Q Treatments Start: 05/18/21 13:45 Freq: Status: Active Protocol: Document 06/01/21 12:16 SP (Rec: 06/01/21 13:20 SP [id number]) Therapeutic Exercises Supine Exercises bridge Resistance personal blue TB loop Reps/Minutes 5 sec hold 2x5 reps Comments cued TA neutral pelvis, glut hip abd fac- painfree good little mus work 3 Supine Exercise Name hamstring and calf stretch Side left Equipment Used w/ her blue Tb loop Reps/Minutes 30 x3 Comments self passive stretch- reviewed 1 Supine Exercise Name IT band stretch with band Side bilateral Reps/Minutes 30 Comments reviewed HEP Standing Exercises sit<> stand Standing Exercise Name added to HEP Reps/Minutes 2x5 reps Comments arms front> across chest, cued forward chair, hip hinge- pain free lunge hip flex stretch Standing Exercise Name hip flexor stretch- reviewed HEP Side bilateral Reps/Minutes 30 x3 Comments feels good 2 Standing Exercise Name tibials ant stretch- Reviewed HEP Reps/Minutes 30x2 Comments reviewed HEP 1 Standing Exercise Name reviewed HEP Side bilateral Reps/Minutes 30x2 Comments calf stretch against wall and off step (gastroc & soleus) Manual Therapy Treatment Soft Tissue Mobilization 1 Body Location rolling/ rocking, sustatined pressure TrP release Intensity/Depth Moderate Body Position seated: rolling pin Comments bilateral IT Band, tibialis ant, calf, hamstrings, quad, adductors -SELF REVIEW application PT-OP-T Assessment and Plan Start: 05/18/21 13:45 Freq: Status: Active Protocol: Document 06/01/21 12:16 SP (Rec: 06/01/21 13:20 SP [id number]) Physical Therapy Assessment Goals Three Impairment HEP Short Term Goal (STG) Deepak will be independent and consistent with her HEP to stretch and strengthen her bilateral LEs. STG Duration 4 weeks Two Impairment Mobility Short Term Goal (STG) Deepak will move from sit to stand with 2/10 pain or less. STG Duration 4 weeks Shelter Goal (LTG) Deepak will move from sit to stand without pain in her lower legs. LTG Duration 8 weeks One Impairment Pain Short Term Goal (STG) Deepak will play pickleball 4x/ week without an increase in her baseline pain. STG Duration 4 weeks Assessment Summary Assessment Tx focused on review HEP review for self confidence: cued as needed for set up/ proper direction/ form with improvement. Provided stand calf stretch at wall and off step per pt request. Initiated bridge hold for alignment stabilization w/ resistance to assist coming to standing strength w/ out hands reported better work without pain holding position. Pt able to repeate sit<> stands with occasional cues for hip hinge, improved eccentric control without UE support and painfree. Physical Therapy Plan Frequency and Duration Frequency of Treatment 2x/Week Duration of Treatment 8 weeks Plan of Care Start Date 05/18/21 Plan of Care End Date 07/13/21 Therapeutic Interventions Therapeutic Interventions Gait Training,Home Exercise Program,Manual Therapy, Neuromuscular Re-education, Self-Care/Home Management,Soft Tissue Mobilization, Therapeutic Activities, Therapeutic Exercises Modalities Cold Pack/Ice Massage,Electric Stimulation,Hot Packs, Ultrasound Next Visit Focus/Plan Next Note Type Treatment Note Next Visit Plan REview HEP: follow up calf and ITB pain. progress hip abd strengthening: Tb hip abd, ext in standing next tx.
--- NOTE | 2021-06-06 14:48 | PT-OP ANOTE ---
Pt arrived friend drove her to appt, friend came in to get a w/c due to report of L knee pain and unable to WB on LLE. Pt reported was playing pickle ball this am, had the best game in a while, at one point went to WB onto LLE and felt like leg muscles did support her and leg collapsed and fell to the ground, I didn't not hurting anything. Pt wanted to attend appt and check if massage could help. GRIEVANCE AND APPEALS COORDINATOR brought pt back at 1434, SBA squat pivot transfer w/c> elevating table. GRIEVANCE AND APPEALS COORDINATOR palpated LCL, MCL, distal ITB, calf with no significant pain around L knee but did react to pressure over distal 1/3 fibula. GRIEVANCE AND APPEALS COORDINATOR recommended that pt be further assessed at the ER or physician's office and pt preferred to go to the ER. GRIEVANCE AND APPEALS COORDINATOR assisted pt by wheeling her to ER. GRIEVANCE AND APPEALS COORDINATOR left pt with registration health insurance specialist. can not WB on LLE. GRIEVANCE AND APPEALS COORDINATOR communicated with director of rehab and discussed just completing admin note and not need to bill for 14min of time spent with pt.
--- NOTE | 2021-06-13 16:32 | PT.OTN ---
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) Pain in unspecified lower leg (06/13/21) Physical Therapy Treatment Note PT-OP-A Visit Information Start: 05/18/21 13:45 Freq: Status: Active Protocol: Document 06/13/21 15:15 AW (Rec: 06/13/21 15:21 AW [id number]) Out-Patient Physical Therapy Visit Information Visit Information Visit Type Treatment Note Visit Start Time 14:30 Visit Stop Time 15:15 Total Visit Minutes 45 Visit Number 6 Number of HOSPICE MUSIC THERAPIST Visits 0 PT-OP-B Current Condition Start: 05/18/21 13:45 Freq: Status: Active Protocol: Document 05/18/21 13:45 AMB (Rec: 05/18/21 13:58 AMB [id number]) Current Condition History of Current Condition Onset Date A month Current Complaints bilateral gastelum/lateral thigh pain History of Current Condition Bilateral leg pain seems to be associated with pickle ball. Stopped for a week and that seemed to help. Pain has been going on for at least a month . A month ago couldn't walk for a couple days. Has been playing pickleball for a year for 2-3 times per week, then increased to 4-5x/week and that's when pain started, doesn't hurt during pickle ball, but a few hours later hurts, variable nature sometimes hurts sometimes doesn't. Getting up from sitting/ squatting are quite challenging right now. Outside of thighs and shins, shins are the worst, both left and right. Prior Treatments and Tests Tried new shoes. Treatment Goals Patient/Caregiver Goals Play pickleball without bilateral leg pain Prior Functional Status Baseline Function- ADL's Independent Baseline Function- Mobility Independent Current Functional Impairments (Reported) Functional Limitations- ADL's Difficulty moving from sit to stand especially after having been sitting for a while Personal Factors Other Personal Factors That May Effect history of plantar fasciitis, Therapy/Recovery over pronation PT-OP-C Subjective Start: 05/18/21 13:45 Freq: Status: Active Protocol: Document 06/13/21 15:15 AW (Rec: 06/13/21 15:21 AW [id number]) OP-PT Subjective Patient Comments Patient Comments Pt was evaluated by ED after last visit. No fracture. She continues to walk with a single crutch but no immobilizer. PT-OP-F Manual Assessment Start: 05/18/21 13:45 Freq: Status: Active Protocol: Document 05/18/21 13:45 AMB (Rec: 05/21/21 14:41 AMB [email or web address]) Manual Assessments Soft Tissue Assessment Soft Tissue Mobility Assessment Tenderness over tibialis anterior, calves, and IT band, worst at tibialis anterior PT-OP-G Mobility & Gait Start: 05/18/21 13:45 Freq: Status: Active Protocol: Document 05/18/21 13:45 AMB (Rec: 05/21/21 14:41 AMB [email or web address]) OP Gait Assessment Comments Gait Comments Over pronation in standing PT-OP-K Range of Motion Start: 05/18/21 13:45 Freq: Status: Active Protocol: Document 05/18/21 13:45 AMB (Rec: 05/21/21 14:41 AMB [email or web address]) Ankle and Foot Goniometric Range of Motion Ankle and Foot ROM Limitations Comments Good hip, knee and ankle mobility throughout PT-OP-M Strength Start: 05/18/21 13:45 Freq: Status: Active Protocol: Document 05/18/21 13:45 AMB (Rec: 05/21/21 14:41 AMB [email or web address]) Hip Strength Hip Manual Muscle Testing Right Flexion (L2) 4+ Good+ Extension (S1) 4 Good Abduction 4 Good Left Flexion (L2) 4+ Good+ Extension (S1) 4+ Good+ Abduction 4 Good Ankle/Foot Strength Ankle and Foot Manual Muscle Testing Right Dorsiflexion (L4) 4- Good- Plantarflexion (S1) 4 Good Inversion 4 Good Eversion (S1) 4 Good Comments mild discomfort with dorsiflexion bilaterally Left Dorsiflexion (L4) 4- Good- Plantarflexion (S1) 4 Good Inversion 4 Good Eversion (S1) 4 Good PT-OP-Q Treatments Start: 05/18/21 13:45 Freq: Status: Active Protocol: Document 06/13/21 15:15 AW (Rec: 06/13/21 15:21 AW [id number]) Therapeutic Exercises Supine Exercises bridge Resistance personal blue TB loop Reps/Minutes 5 sec hold 2x5 reps Comments cued TA neutral pelvis, glut hip abd fac- painfree good little mus work 3 Supine Exercise Name hamstring and calf stretch Side left Equipment Used w/ her blue Tb loop Reps/Minutes 30 x3 Comments self passive stretch- reviewed 1 Supine Exercise Name IT band stretch with band Side bilateral Reps/Minutes 30 Comments reviewed HEP Sidelying Exercises clamshell Sidelying Exercise Name clamshell Side bilateral Resistance pt's own blue loop Reps/Minutes x15 Comments good awareness of stacked hips 1 Sidelying Exercise Name hip abd Side bilateral Reps/Minutes 2x10 Comments cued stacked alignment and hip abd lift (like slide heel on wall) Sitting Exercises ankle inversion/eversion Sitting Exercise Name ankle inversion/eversion Side bilateral Resistance AROM Reps/Minutes x15 Gait Training Gait Activity unilateral crutch Description unilateral crutch Device Used axillary crutch with RUE Level of Assistance SBA Surface carpet, tile Distance/Duration 8 min Treatment Focus pattern, LORENZO Comments Pt was instructed in use of single axillary crutch to offload painful LLE and normalize gait pattern. Pt had good heelstrike with use of crutch and was encouraged to build her confidence with it before moving on to single or bilateral trekking poles. Manual Therapy Treatment Soft Tissue Mobilization 1 Body Location left lateral calf, peroneals Mobilization Type Instrument Assisted,Rolling, Sustained Pressure Intensity/Depth Moderate Body Position Sidelying Comments left lateral gastroc, peroneals with stainless steel tool for trigger point in proximal peroneals. Pt instructed to use rolling pin at home PT-OP-T Assessment and Plan Start: 05/18/21 13:45 Freq: Status: Active Protocol: Document 06/13/21 15:15 AW (Rec: 06/13/21 16:32 AW [email or web address]) Physical Therapy Assessment Goals Three Impairment HEP Short Term Goal (STG) Deepak will be independent and consistent with her HEP to stretch and strengthen her bilateral LEs. STG Duration 4 weeks Two Impairment Mobility Short Term Goal (STG) Deepak will move from sit to stand with 2/10 pain or less. STG Duration 4 weeks Urban Redevelopment Specialist Goal (LTG) Deepak will move from sit to stand without pain in her lower legs. LTG Duration 8 weeks One Impairment Pain Short Term Goal (STG) Deepak will play pickleball 4x/ week without an increase in her baseline pain. STG Duration 4 weeks Assessment Summary Assessment Pt arrived with single axillary crutch used on the left side. Time was devoted to LLE assessment. All ligaments were stable. Pt had slight increase in tone along lateral calf/peroneals which was somewhat reduced after manual therapy. Reviewed supine HEP to reassure pt all exercises were safe. She will resume all supine and sidelying exercises. Plan to progress to LE strengthening in standing at next appointment. Physical Therapy Plan Frequency and Duration Frequency of Treatment 2x/Week Duration of Treatment 8 weeks Plan of Care Start Date 05/18/21 Plan of Care End Date 07/13/21 Therapeutic Interventions Therapeutic Interventions Gait Training,Home Exercise Program,Manual Therapy, Neuromuscular Re-education, Self-Care/Home Management,Soft Tissue Mobilization, Therapeutic Activities, Therapeutic Exercises Modalities Cold Pack/Ice Massage,Electric Stimulation,Hot Packs, Ultrasound Next Visit Focus/Plan Next Note Type Treatment Note Next Visit Plan progress hip abd strengthening : Tb hip abd, ext in standing next tx.
--- NOTE | 2021-06-15 12:37 | PT.OTN ---
Current Diagnoses Iliotibial band syndrome, unspecified leg (06/15/21) Anterior tibial syndrome, unspecified leg (06/15/21) Pain in unspecified lower leg (06/15/21) Physical Therapy Treatment Note PT-OP-A Visit Information Start: 05/18/21 13:45 Freq: Status: Active Protocol: Document 06/15/21 11:15 AW (Rec: 06/15/21 11:14 AW [id number]) Out-Patient Physical Therapy Visit Information Visit Information Visit Start Time 10:32 Visit Stop Time 11:15 Total Visit Minutes 43 Visit Number 7 Number of DEALER ANALYST Visits 0 PT-OP-B Current Condition Start: 05/18/21 13:45 Freq: Status: Active Protocol: Document 05/18/21 13:45 AMB (Rec: 05/18/21 13:58 AMB [id number]) Current Condition History of Current Condition Onset Date A month Current Complaints bilateral gastelum/lateral thigh pain History of Current Condition Bilateral leg pain seems to be associated with pickle ball. Stopped for a week and that seemed to help. Pain has been going on for at least a month . A month ago couldn't walk for a couple days. Has been playing pickleball for a year for 2-3 times per week, then increased to 4-5x/week and that's when pain started, doesn't hurt during pickle ball, but a few hours later hurts, variable nature sometimes hurts sometimes doesn't. Getting up from sitting/ squatting are quite challenging right now. Outside of thighs and shins, shins are the worst, both left and right. Prior Treatments and Tests Tried new shoes. Treatment Goals Patient/Caregiver Goals Play pickleball without bilateral leg pain Prior Functional Status Baseline Function- ADL's Independent Baseline Function- Mobility Independent Current Functional Impairments (Reported) Functional Limitations- ADL's Difficulty moving from sit to stand especially after having been sitting for a while Personal Factors Other Personal Factors That May Effect history of plantar fasciitis, Therapy/Recovery over pronation PT-OP-C Subjective Start: 05/18/21 13:45 Freq: Status: Active Protocol: Document 06/15/21 11:15 AW (Rec: 06/15/21 11:14 AW [id number]) OP-PT Subjective Patient Comments Patient Comments Going up and down stairs with B rails step-to at home. Not using crutch at home but still out in community. PT-OP-F Manual Assessment Start: 05/18/21 13:45 Freq: Status: Active Protocol: Document 05/18/21 13:45 AMB (Rec: 05/21/21 14:41 AMB [email or web address]) Manual Assessments Soft Tissue Assessment Soft Tissue Mobility Assessment Tenderness over tibialis anterior, calves, and IT band, worst at tibialis anterior PT-OP-G Mobility & Gait Start: 05/18/21 13:45 Freq: Status: Active Protocol: Document 05/18/21 13:45 AMB (Rec: 05/21/21 14:41 AMB [email or web address]) OP Gait Assessment Comments Gait Comments Over pronation in standing PT-OP-K Range of Motion Start: 05/18/21 13:45 Freq: Status: Active Protocol: Document 05/18/21 13:45 AMB (Rec: 05/21/21 14:41 AMB [email or web address]) Ankle and Foot Goniometric Range of Motion Ankle and Foot ROM Limitations Comments Good hip, knee and ankle mobility throughout PT-OP-M Strength Start: 05/18/21 13:45 Freq: Status: Active Protocol: Document 05/18/21 13:45 AMB (Rec: 05/21/21 14:41 AMB [email or web address]) Hip Strength Hip Manual Muscle Testing Right Flexion (L2) 4+ Good+ Extension (S1) 4 Good Abduction 4 Good Left Flexion (L2) 4+ Good+ Extension (S1) 4+ Good+ Abduction 4 Good Ankle/Foot Strength Ankle and Foot Manual Muscle Testing Right Dorsiflexion (L4) 4- Good- Plantarflexion (S1) 4 Good Inversion 4 Good Eversion (S1) 4 Good Comments mild discomfort with dorsiflexion bilaterally Left Dorsiflexion (L4) 4- Good- Plantarflexion (S1) 4 Good Inversion 4 Good Eversion (S1) 4 Good PT-OP-Q Treatments Start: 05/18/21 13:45 Freq: Status: Active Protocol: Document 06/15/21 11:15 AW (Rec: 06/15/21 11:14 AW [id number]) Therapeutic Exercises Supine Exercises bridge Resistance personal blue TB loop Reps/Minutes 5 sec hold x15 reps Comments cued foot drive to increase glute recruitment Sidelying Exercises clamshell Sidelying Exercise Name clamshell Side bilateral Resistance pt's own blue loop Reps/Minutes x15 Comments good awareness of stacked hips 1 Sidelying Exercise Name hip abd Side bilateral Reps/Minutes 2x10 Comments cued stacked alignment and hip abd lift (like slide heel on wall) Standing Exercises heel raise Standing Exercise Name heel raise Side bilateral Equipment Used 4 step Reps/Minutes x10 Comments added to HEP lunge hip flex stretch Standing Exercise Name hip flexor stretch- reviewed HEP Side bilateral Reps/Minutes 30 x3 Comments feels good 2 Standing Exercise Name tibials ant stretch- Reviewed HEP Reps/Minutes 30x2 Comments reviewed HEP 1 Standing Exercise Name reviewed HEP Side bilateral Reps/Minutes 30x2 Comments calf stretch against wall and off step (gastroc & soleus) Manual Therapy Treatment Soft Tissue Mobilization 1 Body Location left lateral calf, peroneals Mobilization Type Rolling,Sustained Pressure, Trigger Point Release Intensity/Depth Moderate Body Position Sitting Comments left lateral gastroc, peroneals for trigger point in proximal peroneals. Pt instructed to use rolling pin at home PT-OP-T Assessment and Plan Start: 05/18/21 13:45 Freq: Status: Active Protocol: Document 06/15/21 11:15 AW (Rec: 06/15/21 12:37 AW [email or web address]) Physical Therapy Assessment Goals Three Impairment HEP Short Term Goal (STG) Deepak will be independent and consistent with her HEP to stretch and strengthen her bilateral LEs. STG Duration 4 weeks Two Impairment Mobility Short Term Goal (STG) Deepak will move from sit to stand with 2/10 pain or less. STG Duration 4 weeks Coal Crusher Operator Goal (LTG) Deepak will move from sit to stand without pain in her lower legs. LTG Duration 8 weeks One Impairment Pain Short Term Goal (STG) Deepak will play pickleball 4x/ week without an increase in her baseline pain. STG Duration 4 weeks Assessment Summary Assessment Pt continues to use single axillary crutch for community ambulation but is not using it at home. Treatment today focused on manual therapy for left calf and fibularis musculature, review of HEP, and standing gastroc strengthening. Pt complains of left knee pain with loaded flexion. Physical Therapy Plan Frequency and Duration Frequency of Treatment 2x/Week Duration of Treatment 8 weeks Plan of Care Start Date 05/18/21 Plan of Care End Date 07/13/21 Therapeutic Interventions Therapeutic Interventions Gait Training,Home Exercise Program,Manual Therapy, Neuromuscular Re-education, Self-Care/Home Management,Soft Tissue Mobilization, Therapeutic Activities, Therapeutic Exercises Modalities Cold Pack/Ice Massage,Electric Stimulation,Hot Packs, Ultrasound Next Visit Focus/Plan Next Note Type Treatment Note Next Visit Plan progress hip abd strengthening : Tb hip abd, ext in standing next tx.
--- NOTE | 2021-06-21 15:28 | PT.OTN ---
Current Diagnoses Iliotibial band syndrome, unspecified leg (06/21/21) Anterior tibial syndrome, unspecified leg (06/21/21) Pain in unspecified lower leg (06/21/21) Physical Therapy Treatment Note PT-OP-A Visit Information Start: 05/18/21 13:45 Freq: Status: Active Protocol: Document 06/21/21 13:51 MA (Rec: 06/21/21 14:32 MA [id number]) Out-Patient Physical Therapy Visit Information Visit Information Visit Type Treatment Note Visit Start Time 13:45 Visit Stop Time 14:27 Total Visit Minutes 42 Visit Number 8 Number of ROLL SHOP SUPERVISOR Visits 1 PT-OP-B Current Condition Start: 05/18/21 13:45 Freq: Status: Active Protocol: Document 05/18/21 13:45 AMB (Rec: 05/18/21 13:58 AMB [id number]) Current Condition History of Current Condition Onset Date A month Current Complaints bilateral gastelum/lateral thigh pain History of Current Condition Bilateral leg pain seems to be associated with pickle ball. Stopped for a week and that seemed to help. Pain has been going on for at least a month . A month ago couldn't walk for a couple days. Has been playing pickleball for a year for 2-3 times per week, then increased to 4-5x/week and that's when pain started, doesn't hurt during pickle ball, but a few hours later hurts, variable nature sometimes hurts sometimes doesn't. Getting up from sitting/ squatting are quite challenging right now. Outside of thighs and shins, shins are the worst, both left and right. Prior Treatments and Tests Tried new shoes. Treatment Goals Patient/Caregiver Goals Play pickleball without bilateral leg pain Prior Functional Status Baseline Function- ADL's Independent Baseline Function- Mobility Independent Current Functional Impairments (Reported) Functional Limitations- ADL's Difficulty moving from sit to stand especially after having been sitting for a while Personal Factors Other Personal Factors That May Effect history of plantar fasciitis, Therapy/Recovery over pronation PT-OP-C Subjective Start: 05/18/21 13:45 Freq: Status: Active Protocol: Document 06/21/21 13:51 MA (Rec: 06/21/21 14:32 MA [id number]) OP-PT Subjective Patient Comments Patient Comments Pt is still step-to on stairs at home and feels like she had made progress but the pain has returned. PT-OP-F Manual Assessment Start: 05/18/21 13:45 Freq: Status: Active Protocol: Document 05/18/21 13:45 AMB (Rec: 05/21/21 14:41 AMB [email or web address]) Manual Assessments Soft Tissue Assessment Soft Tissue Mobility Assessment Tenderness over tibialis anterior, calves, and IT band, worst at tibialis anterior PT-OP-G Mobility & Gait Start: 05/18/21 13:45 Freq: Status: Active Protocol: Document 05/18/21 13:45 AMB (Rec: 05/21/21 14:41 AMB [email or web address]) OP Gait Assessment Comments Gait Comments Over pronation in standing PT-OP-K Range of Motion Start: 05/18/21 13:45 Freq: Status: Active Protocol: Document 05/18/21 13:45 AMB (Rec: 05/21/21 14:41 AMB [email or web address]) Ankle and Foot Goniometric Range of Motion Ankle and Foot ROM Limitations Comments Good hip, knee and ankle mobility throughout PT-OP-M Strength Start: 05/18/21 13:45 Freq: Status: Active Protocol: Document 05/18/21 13:45 AMB (Rec: 05/21/21 14:41 AMB [email or web address]) Hip Strength Hip Manual Muscle Testing Right Flexion (L2) 4+ Good+ Extension (S1) 4 Good Abduction 4 Good Left Flexion (L2) 4+ Good+ Extension (S1) 4+ Good+ Abduction 4 Good Ankle/Foot Strength Ankle and Foot Manual Muscle Testing Right Dorsiflexion (L4) 4- Good- Plantarflexion (S1) 4 Good Inversion 4 Good Eversion (S1) 4 Good Comments mild discomfort with dorsiflexion bilaterally Left Dorsiflexion (L4) 4- Good- Plantarflexion (S1) 4 Good Inversion 4 Good Eversion (S1) 4 Good PT-OP-Q Treatments Start: 05/18/21 13:45 Freq: Status: Active Protocol: Document 06/21/21 13:51 MA (Rec: 06/21/21 14:32 MA [id number]) Therapeutic Exercises Sidelying Exercises clamshell Sidelying Exercise Name clamshell Side bilateral Resistance pt's own blue loop Reps/Minutes 2x15 Comments good awareness of stacked hips 1 Sidelying Exercise Name hip abd Side bilateral Reps/Minutes 2x15 Comments cued stacked alignment and hip abd lift (like slide heel on wall) Standing Exercises Hip Abd Equipment Used pt's personal blue TB Reps/Minutes 10 Comments added to HEP Hip Ext Equipment Used lvl 2 TB Reps/Minutes 10 Comments added to HEP Stretch Standing Exercise Name calf stretch on ALISHA Side bilateral Reps/Minutes 2' lunge hip flex stretch Standing Exercise Name hip flexor stretch- reviewed HEP Side bilateral Reps/Minutes 30 x3 Comments feels good 1 Standing Exercise Name reviewed HEP Side bilateral Reps/Minutes 30x2 Comments calf stretch against wall and off step (gastroc & soleus) Manual Therapy Treatment Soft Tissue Mobilization 1 Body Location left calf Mobilization Type Rolling,Sustained Pressure, Trigger Point Release Intensity/Depth Moderate Body Position Sitting Comments Pt instructed to use rolling pin at home Self-Care/Home Management Treatment Activities Self-Care/Home Management Activities Educated pt on how to use mm roller for L gastrocs. Instructed pt to begin rolling out at home. PT-OP-T Assessment and Plan Start: 05/18/21 13:45 Freq: Status: Active Protocol: Document 06/21/21 13:51 MA (Rec: 06/21/21 14:32 MA [id number]) Physical Therapy Assessment Goals Three Impairment HEP Short Term Goal (STG) Deepak will be independent and consistent with her HEP to stretch and strengthen her bilateral LEs. STG Duration 4 weeks Two Impairment Mobility Short Term Goal (STG) Deepak will move from sit to stand with 2/10 pain or less. STG Duration 4 weeks Radiology Physician Goal (LTG) Deepak will move from sit to stand without pain in her lower legs. LTG Duration 8 weeks One Impairment Pain Short Term Goal (STG) Deepak will play pickleball 4x/ week without an increase in her baseline pain. STG Duration 4 weeks Assessment Summary Assessment Pt continues to have pain on L lateral gastroc. She is tender to palpation on medial and lateral gastroc today during STM. Pt d/c stair stretch at home due to pain. Encouraged pt to try less time during stair stretch or staggered stance stretch at wall for stretching gastrocs and to begin using her mm roller to roll out gastrocs. Added standing hip ext and abd to HEP. When using pt's [place] band, pt felt hip ext on lateral LLE ITB vs HS. Dispensed lvl 2 theraband with door attachment for pt to use at home with pt feeling extension properly in glute and HS. Physical Therapy Plan Frequency and Duration Frequency of Treatment 2x/Week Duration of Treatment 8 weeks Plan of Care Start Date 05/18/21 Plan of Care End Date 07/13/21 Therapeutic Interventions Therapeutic Interventions Gait Training,Home Exercise Program,Manual Therapy, Neuromuscular Re-education, Self-Care/Home Management,Soft Tissue Mobilization, Therapeutic Activities, Therapeutic Exercises Modalities Cold Pack/Ice Massage,Electric Stimulation,Hot Packs, Ultrasound Next Visit Focus/Plan Next Note Type Treatment Note Next Visit Plan Continue working on Tb hip abd & ext in standing. Begin stair training due to pt reporting step-to pattern since L ITB and gastroc injuries.
--- NOTE | 2021-06-26 13:46 | PT.OTN ---
Current Diagnoses Iliotibial band syndrome, unspecified leg (06/26/21) Anterior tibial syndrome, unspecified leg (06/26/21) Pain in unspecified lower leg (06/26/21) Physical Therapy Treatment Note PT-OP-A Visit Information Start: 05/18/21 13:45 Freq: Status: Active Protocol: Document 06/26/21 13:06 SP (Rec: 06/26/21 14:06 SP [id number]) Out-Patient Physical Therapy Visit Information Visit Information Visit Type Treatment Note Visit Start Time 13:06 Visit Stop Time 13:46 Total Visit Minutes 40 Visit Number 9 Number of BACTERIOLOGY TECHNICIAN Visits 2 PT-OP-B Current Condition Start: 05/18/21 13:45 Freq: Status: Active Protocol: Document 05/18/21 13:45 AMB (Rec: 05/18/21 13:58 AMB [id number]) Current Condition History of Current Condition Onset Date A month Current Complaints bilateral gastelum/lateral thigh pain History of Current Condition Bilateral leg pain seems to be associated with pickle ball. Stopped for a week and that seemed to help. Pain has been going on for at least a month . A month ago couldn't walk for a couple days. Has been playing pickleball for a year for 2-3 times per week, then increased to 4-5x/week and that's when pain started, doesn't hurt during pickle ball, but a few hours later hurts, variable nature sometimes hurts sometimes doesn't. Getting up from sitting/ squatting are quite challenging right now. Outside of thighs and shins, shins are the worst, both left and right. Prior Treatments and Tests Tried new shoes. Treatment Goals Patient/Caregiver Goals Play pickleball without bilateral leg pain Prior Functional Status Baseline Function- ADL's Independent Baseline Function- Mobility Independent Current Functional Impairments (Reported) Functional Limitations- ADL's Difficulty moving from sit to stand especially after having been sitting for a while Personal Factors Other Personal Factors That May Effect history of plantar fasciitis, Therapy/Recovery over pronation PT-OP-C Subjective Start: 05/18/21 13:45 Freq: Status: Active Protocol: Document 06/26/21 13:06 SP (Rec: 06/26/21 14:06 SP [id number]) OP-PT Subjective Patient Comments Patient Comments Pt stated did not do standing exerises and started some of her yoga stretches again,is compliant with supine ex at home. PT-OP-F Manual Assessment Start: 05/18/21 13:45 Freq: Status: Active Protocol: Document 05/18/21 13:45 AMB (Rec: 05/21/21 14:41 AMB [email or web address]) Manual Assessments Soft Tissue Assessment Soft Tissue Mobility Assessment Tenderness over tibialis anterior, calves, and IT band, worst at tibialis anterior PT-OP-G Mobility & Gait Start: 05/18/21 13:45 Freq: Status: Active Protocol: Document 05/18/21 13:45 AMB (Rec: 05/21/21 14:41 AMB [email or web address]) OP Gait Assessment Comments Gait Comments Over pronation in standing PT-OP-K Range of Motion Start: 05/18/21 13:45 Freq: Status: Active Protocol: Document 05/18/21 13:45 AMB (Rec: 05/21/21 14:41 AMB [email or web address]) Ankle and Foot Goniometric Range of Motion Ankle and Foot ROM Limitations Comments Good hip, knee and ankle mobility throughout PT-OP-M Strength Start: 05/18/21 13:45 Freq: Status: Active Protocol: Document 05/18/21 13:45 AMB (Rec: 05/21/21 14:41 AMB [email or web address]) Hip Strength Hip Manual Muscle Testing Right Flexion (L2) 4+ Good+ Extension (S1) 4 Good Abduction 4 Good Left Flexion (L2) 4+ Good+ Extension (S1) 4+ Good+ Abduction 4 Good Ankle/Foot Strength Ankle and Foot Manual Muscle Testing Right Dorsiflexion (L4) 4- Good- Plantarflexion (S1) 4 Good Inversion 4 Good Eversion (S1) 4 Good Comments mild discomfort with dorsiflexion bilaterally Left Dorsiflexion (L4) 4- Good- Plantarflexion (S1) 4 Good Inversion 4 Good Eversion (S1) 4 Good PT-OP-Q Treatments Start: 05/18/21 13:45 Freq: Status: Active Protocol: Document 06/26/21 13:06 SP (Rec: 06/26/21 14:06 SP [id number]) Therapeutic Exercises Sitting Exercises hip ER stretch Sitting Exercise Name fig 4 Side bilateral Reps/Minutes 30 x2 Comments good feeling stretch HS stretch Sitting Exercise Name added to HEP Side bilateral Comments hip hinge- good stretch Standing Exercises self STMs Equipment Used rolling pin quad, calf, HS Reps/Minutes 3 min Comments decreased soreness band walk Standing Exercise Name f/b/side stepping (added to HEP) Side bilateral Resistance TB #2 personal > GTB PT (will bring personal #3 next tx) Reps/Minutes 20ft x2 laps each direction Comments cued no drag trail LE, no SB trunk, core/ hip abd fac Hip Abd Equipment Used pt's personal blue TB (bring L3 next tx) Reps/Minutes 10 Comments reviewed HEP Hip Ext Equipment Used lvl 2 TB (bring personal L3 next tx) Reps/Minutes 10 Comments reviewed HEP heel raise Standing Exercise Name heel raise (//, toe in, toe out) Side bilateral Equipment Used 4 step Reps/Minutes x10 Comments reviewed HEP- good tiring response, rolled calf after decrease achiness 1 Standing Exercise Name reviewed HEP Side bilateral Equipment Used off bottom step vs over towel (kelley simulation) Reps/Minutes 30x2 Comments calf stretch against wall and off step (gastroc & soleus) PT-OP-T Assessment and Plan Start: 05/18/21 13:45 Freq: Status: Active Protocol: Document 06/26/21 13:06 SP (Rec: 06/26/21 14:06 SP [id number]) Physical Therapy Assessment Goals Three Impairment HEP Short Term Goal (STG) Deepak will be independent and consistent with her HEP to stretch and strengthen her bilateral LEs. STG Duration 4 weeks Two Impairment Mobility Short Term Goal (STG) Deepak will move from sit to stand with 2/10 pain or less. STG Duration 4 weeks Faculty Criminal Justice Goal (LTG) Deepak will move from sit to stand without pain in her lower legs. LTG Duration 8 weeks One Impairment Pain Short Term Goal (STG) Deepak will play pickleball 4x/ week without an increase in her baseline pain. STG Duration 4 weeks Assessment Summary Assessment Pt felt good muscle working stabilization during standing HEP review and added band walks f/b/s with cues for trunk and trailing core/ hip abd facilitation improved form . Progress strengthening #3 personal TB hip ext/ abd next tx. Ended with stretching with good over response to tx. Physical Therapy Plan Frequency and Duration Frequency of Treatment 2x/Week Duration of Treatment 8 weeks Plan of Care Start Date 05/18/21 Plan of Care End Date 07/13/21 Therapeutic Interventions Therapeutic Interventions Gait Training,Home Exercise Program,Manual Therapy, Neuromuscular Re-education, Self-Care/Home Management,Soft Tissue Mobilization, Therapeutic Activities, Therapeutic Exercises Modalities Cold Pack/Ice Massage,Electric Stimulation,Hot Packs, Ultrasound Next Visit Focus/Plan Next Note Type Treatment Note Next Visit Plan Review standing hip abd, ext, band walk next tx. Progress POC: Begin stair training due to pt reporting step-to pattern since L ITB and gastroc injuries.
--- NOTE | 2021-06-29 10:32 | PT.OTN ---
Current Diagnoses Iliotibial band syndrome, unspecified leg (06/29/21) Anterior tibial syndrome, unspecified leg (06/29/21) Pain in unspecified lower leg (06/29/21) Physical Therapy Treatment Note PT-OP-A Visit Information Start: 05/18/21 13:45 Freq: Status: Active Protocol: Document 06/29/21 09:48 SP (Rec: 06/29/21 11:55 SP [id number]) Out-Patient Physical Therapy Visit Information Visit Information Visit Type Treatment Note Visit Start Time 09:48 Visit Stop Time 10:32 Total Visit Minutes 44 Visit Number 10 Number of STRUCTURAL STEEL ENGINEER Visits 3 PT-OP-B Current Condition Start: 05/18/21 13:45 Freq: Status: Active Protocol: Document 05/18/21 13:45 AMB (Rec: 05/18/21 13:58 AMB [id number]) Current Condition History of Current Condition Onset Date A month Current Complaints bilateral gastelum/lateral thigh pain History of Current Condition Bilateral leg pain seems to be associated with pickle ball. Stopped for a week and that seemed to help. Pain has been going on for at least a month . A month ago couldn't walk for a couple days. Has been playing pickleball for a year for 2-3 times per week, then increased to 4-5x/week and that's when pain started, doesn't hurt during pickle ball, but a few hours later hurts, variable nature sometimes hurts sometimes doesn't. Getting up from sitting/ squatting are quite challenging right now. Outside of thighs and shins, shins are the worst, both left and right. Prior Treatments and Tests Tried new shoes. Treatment Goals Patient/Caregiver Goals Play pickleball without bilateral leg pain Prior Functional Status Baseline Function- ADL's Independent Baseline Function- Mobility Independent Current Functional Impairments (Reported) Functional Limitations- ADL's Difficulty moving from sit to stand especially after having been sitting for a while Personal Factors Other Personal Factors That May Effect history of plantar fasciitis, Therapy/Recovery over pronation PT-OP-C Subjective Start: 05/18/21 13:45 Freq: Status: Active Protocol: Document 06/29/21 09:48 SP (Rec: 06/29/21 11:55 SP [id number]) OP-PT Subjective Patient Comments Patient Comments Pt reported able to ascend/ descend stairs now but more challenging descending receprocal gait due to lack of ROM in L knee trailing. PT-OP-F Manual Assessment Start: 05/18/21 13:45 Freq: Status: Active Protocol: Document 05/18/21 13:45 AMB (Rec: 05/21/21 14:41 AMB [email or web address]) Manual Assessments Soft Tissue Assessment Soft Tissue Mobility Assessment Tenderness over tibialis anterior, calves, and IT band, worst at tibialis anterior PT-OP-G Mobility & Gait Start: 05/18/21 13:45 Freq: Status: Active Protocol: Document 05/18/21 13:45 AMB (Rec: 05/21/21 14:41 AMB [email or web address]) OP Gait Assessment Comments Gait Comments Over pronation in standing PT-OP-K Range of Motion Start: 05/18/21 13:45 Freq: Status: Active Protocol: Document 05/18/21 13:45 AMB (Rec: 05/21/21 14:41 AMB [email or web address]) Ankle and Foot Goniometric Range of Motion Ankle and Foot ROM Limitations Comments Good hip, knee and ankle mobility throughout PT-OP-M Strength Start: 05/18/21 13:45 Freq: Status: Active Protocol: Document 05/18/21 13:45 AMB (Rec: 05/21/21 14:41 AMB [email or web address]) Hip Strength Hip Manual Muscle Testing Right Flexion (L2) 4+ Good+ Extension (S1) 4 Good Abduction 4 Good Left Flexion (L2) 4+ Good+ Extension (S1) 4+ Good+ Abduction 4 Good Ankle/Foot Strength Ankle and Foot Manual Muscle Testing Right Dorsiflexion (L4) 4- Good- Plantarflexion (S1) 4 Good Inversion 4 Good Eversion (S1) 4 Good Comments mild discomfort with dorsiflexion bilaterally Left Dorsiflexion (L4) 4- Good- Plantarflexion (S1) 4 Good Inversion 4 Good Eversion (S1) 4 Good PT-OP-Q Treatments Start: 05/18/21 13:45 Freq: Status: Active Protocol: Document 06/29/21 09:48 SP (Rec: 06/29/21 11:55 SP [id number]) Cardio Equipment Recumbent Stepper (Sci-Fit) Duration (Minutes) 3 Resistance 1 Seat Position 11 Other LEs only( 49 RPM, METS 2.3, 0. 37miles) Therapeutic Exercises Standing Exercises step down Standing Exercise Name foward, lateral Side right Reps/Minutes x3 Comments pain anterior L knee so stopped,unable recruit glut/ hip abd fac- hold band walk Standing Exercise Name f/b/side stepping ( reviewed HEP) Side bilateral Resistance TB personal #3 at ankles Reps/Minutes 20ft x3 laps each direction Comments cued no drag trail LE, no SB trunk, core/ hip abd fac Hip Abd Equipment Used personal L3 Reps/Minutes 10 Comments reviewed HEP Hip Ext Equipment Used personal L3 Reps/Minutes 10 Comments reviewed HEP sit<> stand Standing Exercise Name reviewed HEP Reps/Minutes 2x5 reps Comments arms front> across chest, cued forward chair, hip hinge- pain free Other Exercises self STMs racquetball Other Exercise Name L calf proximal gastroc with knee extended, MWM ankle DF/ PF Equipment Used long sitting on floor/ yoga mat Reps/Minutes 3 min Comments sustained pressure, rolling, MWM- good response Gait Training Gait Activity stairs Description receiprocal steps Device Used B HR Level of Assistance 4 x 2 reps Treatment Focus eccentric ROM LLE. Comments Pt requires BUE contact- min BUE support ascending, Mod WB through rails descending with RLE leading. Improves with repetitions will work on progressing ROM. PT-OP-T Assessment and Plan Start: 05/18/21 13:45 Freq: Status: Active Protocol: Document 06/29/21 09:48 SP (Rec: 06/29/21 11:55 SP [id number]) Physical Therapy Assessment Goals Three Impairment HEP Short Term Goal (STG) Deepak will be independent and consistent with her HEP to stretch and strengthen her bilateral LEs. STG Duration 4 weeks Two Impairment Mobility Short Term Goal (STG) Deepak will move from sit to stand with 2/10 pain or less. STG Duration 4 weeks Residential Goal (LTG) Deepak will move from sit to stand without pain in her lower legs. LTG Duration 8 weeks One Impairment Pain Short Term Goal (STG) Deepak will play pickleball 4x/ week without an increase in her baseline pain. STG Duration 4 weeks Assessment Summary Assessment Tx focused on HEP review with increase resistance this tx, occasional cues for PPT/ neutral pelvis spinal stabilizatoin during band walks, hip abd/ ext to decrease LS paraspinals recruitment. Stair mgt training with cues for pelvis positioning to decrease anterior knee discomfort, initiated eccentric knee flexion off 2 step forward, lateral with irritation over anterior and in L knee so will hold off right now and focus on increase L knee ROM. Pt reported L calf tightening, improved relaxing post instruction on self STMs in use of rac ball roll or AP MWM under calf with good feedback response. Pt is feeling more confident in HEP progressing strength and mobility. Physical Therapy Plan Frequency and Duration Frequency of Treatment 2x/Week Duration of Treatment 8 weeks Plan of Care Start Date 05/18/21 Plan of Care End Date 07/13/21 Therapeutic Interventions Therapeutic Interventions Gait Training,Home Exercise Program,Manual Therapy, Neuromuscular Re-education, Self-Care/Home Management,Soft Tissue Mobilization, Therapeutic Activities, Therapeutic Exercises Modalities Cold Pack/Ice Massage,Electric Stimulation,Hot Packs, Ultrasound Next Visit Focus/Plan Next Note Type Treatment Note Next Visit Plan Review HEP, next tx L knee ROM and eccentric knee flexion strengthening to improve receiprocal descending stairs. Work on gait training longer distance with AD as needed, quality keliel COURTNEY burnett and aligment in mirror Progress POC: Continue stair training due to pt reporting step-to pattern since L ITB and gastroc injuries.
--- NOTE | 2021-07-04 10:40 | PT-OP ANOTE ---
Addendum entered and electronically signed by Karely Dorsey, BURR SANDER 07/04/21 10:50: Pt confirmed next benjamin on 07/06 with PT. Original Note: Pt did not show for today's appt, when called her this am she stated selected needed to cancel today's appt on automated system when received a phone call > 24hr notice.
--- NOTE | 2021-07-06 11:53 | PT.OTN ---
Current Diagnoses Iliotibial band syndrome, unspecified leg (07/06/21) Anterior tibial syndrome, unspecified leg (07/06/21) Pain in unspecified lower leg (07/06/21) Physical Therapy Treatment Note PT-OP-A Visit Information Start: 05/18/21 13:45 Freq: Status: Active Protocol: Document 07/06/21 11:49 AW (Rec: 07/06/21 11:42 AW [id number]) Out-Patient Physical Therapy Visit Information Visit Information Visit Type Treatment Note Visit Start Time 11:18 Visit Stop Time 11:49 Total Visit Minutes 31 Visit Number 11 Number of JOCKEY AGENT Visits 0 PT-OP-B Current Condition Start: 05/18/21 13:45 Freq: Status: Active Protocol: Document 05/18/21 13:45 AMB (Rec: 05/18/21 13:58 AMB [id number]) Current Condition History of Current Condition Onset Date A month Current Complaints bilateral gastelum/lateral thigh pain History of Current Condition Bilateral leg pain seems to be associated with pickle ball. Stopped for a week and that seemed to help. Pain has been going on for at least a month . A month ago couldn't walk for a couple days. Has been playing pickleball for a year for 2-3 times per week, then increased to 4-5x/week and that's when pain started, doesn't hurt during pickle ball, but a few hours later hurts, variable nature sometimes hurts sometimes doesn't. Getting up from sitting/ squatting are quite challenging right now. Outside of thighs and shins, shins are the worst, both left and right. Prior Treatments and Tests Tried new shoes. Treatment Goals Patient/Caregiver Goals Play pickleball without bilateral leg pain Prior Functional Status Baseline Function- ADL's Independent Baseline Function- Mobility Independent Current Functional Impairments (Reported) Functional Limitations- ADL's Difficulty moving from sit to stand especially after having been sitting for a while Personal Factors Other Personal Factors That May Effect history of plantar fasciitis, Therapy/Recovery over pronation PT-OP-C Subjective Start: 05/18/21 13:45 Freq: Status: Active Protocol: Document 07/06/21 11:49 AW (Rec: 07/06/21 11:42 AW [id number]) OP-PT Subjective Patient Comments Patient Comments I can now get off the toilet without using my hands. I'm going about 40 min on the treadmill now. PT-OP-F Manual Assessment Start: 05/18/21 13:45 Freq: Status: Active Protocol: Document 05/18/21 13:45 AMB (Rec: 05/21/21 14:41 AMB [email or web address]) Manual Assessments Soft Tissue Assessment Soft Tissue Mobility Assessment Tenderness over tibialis anterior, calves, and IT band, worst at tibialis anterior PT-OP-G Mobility & Gait Start: 05/18/21 13:45 Freq: Status: Active Protocol: Document 05/18/21 13:45 AMB (Rec: 05/21/21 14:41 AMB [email or web address]) OP Gait Assessment Comments Gait Comments Over pronation in standing PT-OP-K Range of Motion Start: 05/18/21 13:45 Freq: Status: Active Protocol: Document 05/18/21 13:45 AMB (Rec: 05/21/21 14:41 AMB [email or web address]) Ankle and Foot Goniometric Range of Motion Ankle and Foot ROM Limitations Comments Good hip, knee and ankle mobility throughout PT-OP-M Strength Start: 05/18/21 13:45 Freq: Status: Active Protocol: Document 05/18/21 13:45 AMB (Rec: 05/21/21 14:41 AMB [email or web address]) Hip Strength Hip Manual Muscle Testing Right Flexion (L2) 4+ Good+ Extension (S1) 4 Good Abduction 4 Good Left Flexion (L2) 4+ Good+ Extension (S1) 4+ Good+ Abduction 4 Good Ankle/Foot Strength Ankle and Foot Manual Muscle Testing Right Dorsiflexion (L4) 4- Good- Plantarflexion (S1) 4 Good Inversion 4 Good Eversion (S1) 4 Good Comments mild discomfort with dorsiflexion bilaterally Left Dorsiflexion (L4) 4- Good- Plantarflexion (S1) 4 Good Inversion 4 Good Eversion (S1) 4 Good PT-OP-Q Treatments Start: 05/18/21 13:45 Freq: Status: Active Protocol: Document 07/06/21 11:49 AW (Rec: 07/06/21 11:42 AW [id number]) Therapeutic Exercises Sitting Exercises eccentric knee flexion Sitting Exercise Name eccentric knee flexion Side left Resistance TB3 Reps/Minutes 8 x 2 Comments strong sense of fatigue; some hesitation but no pain Standing Exercises step down Standing Exercise Name foward, lateral Side bilateral Equipment Used 4 step > 6 step Reps/Minutes x10 each direction Comments left knee discomfort but no pain today self STMs Equipment Used rolling pin quad, calf, HS Reps/Minutes 3 min Comments decreased soreness Stretch Standing Exercise Name calf stretch on ALISHA Side bilateral Reps/Minutes 2' heel raise Standing Exercise Name heel raise (//, toe in, toe out) Side bilateral Equipment Used 4 step Reps/Minutes x10 Comments reviewed HEP- good tiring response, rolled calf after decrease achiness 2 Standing Exercise Name tibials ant stretch- Reviewed HEP Reps/Minutes 30x2 Comments reviewed HEP Gait Training Gait Activity stairs Description receiprocal steps Device Used B HR Level of Assistance 4 x 5 reps Treatment Focus eccentric ROM LLE Comments BUE contact ascending SBA, BUE contact descending with step over step pattern. Improved ROM and eccentric control. Manual Therapy Treatment Soft Tissue Mobilization 1 Body Location left calf Mobilization Type Rolling,Sustained Pressure, Trigger Point Release Intensity/Depth Moderate Body Position Sitting Comments Pt instructed to use rolling pin at home PT-OP-T Assessment and Plan Start: 05/18/21 13:45 Freq: Status: Active Protocol: Document 07/06/21 11:49 AW (Rec: 07/06/21 11:53 AW [id number]) Physical Therapy Plan Next Visit Focus/Plan Next Note Type Treatment Note Next Visit Plan Review HEP, next tx L knee ROM and eccentric knee flexion strengthening to improve receiprocal descending stairs. Work on gait training longer distance with AD as needed, quality evel LE candence and aligment in mirror Progress POC: Continue stair training due to pt reporting step-to pattern since L ITB and gastroc injuries.
--- NOTE | 2021-07-11 16:17 | PT.OTN ---
Current Diagnoses Iliotibial band syndrome, unspecified leg (07/11/21) Anterior tibial syndrome, unspecified leg (07/11/21) Pain in unspecified lower leg (07/11/21) Physical Therapy Treatment Note PT-OP-A Visit Information Start: 05/18/21 13:45 Freq: Status: Active Protocol: Document 07/11/21 16:00 AW (Rec: 07/11/21 16:16 AW [id number]) Out-Patient Physical Therapy Visit Information Visit Information Visit Type Treatment Note Visit Start Time 15:15 Visit Stop Time 16:00 Total Visit Minutes 45 Visit Number 12 Number of FOXER Visits 0 PT-OP-B Current Condition Start: 05/18/21 13:45 Freq: Status: Active Protocol: Document 05/18/21 13:45 AMB (Rec: 05/18/21 13:58 AMB [id number]) Current Condition History of Current Condition Onset Date A month Current Complaints bilateral gastelum/lateral thigh pain History of Current Condition Bilateral leg pain seems to be associated with pickle ball. Stopped for a week and that seemed to help. Pain has been going on for at least a month . A month ago couldn't walk for a couple days. Has been playing pickleball for a year for 2-3 times per week, then increased to 4-5x/week and that's when pain started, doesn't hurt during pickle ball, but a few hours later hurts, variable nature sometimes hurts sometimes doesn't. Getting up from sitting/ squatting are quite challenging right now. Outside of thighs and shins, shins are the worst, both left and right. Prior Treatments and Tests Tried new shoes. Treatment Goals Patient/Caregiver Goals Play pickleball without bilateral leg pain Prior Functional Status Baseline Function- ADL's Independent Baseline Function- Mobility Independent Current Functional Impairments (Reported) Functional Limitations- ADL's Difficulty moving from sit to stand especially after having been sitting for a while Personal Factors Other Personal Factors That May Effect history of plantar fasciitis, Therapy/Recovery over pronation PT-OP-C Subjective Start: 05/18/21 13:45 Freq: Status: Active Protocol: Document 07/11/21 16:00 AW (Rec: 07/11/21 16:16 AW [id number]) OP-PT Subjective Patient Comments Patient Comments I still don't feel like I can put all my weight on this left leg without hesitating but stairs are better. PT-OP-F Manual Assessment Start: 05/18/21 13:45 Freq: Status: Active Protocol: Document 05/18/21 13:45 AMB (Rec: 05/21/21 14:41 AMB [email or web address]) Manual Assessments Soft Tissue Assessment Soft Tissue Mobility Assessment Tenderness over tibialis anterior, calves, and IT band, worst at tibialis anterior PT-OP-G Mobility & Gait Start: 05/18/21 13:45 Freq: Status: Active Protocol: Document 05/18/21 13:45 AMB (Rec: 05/21/21 14:41 AMB [email or web address]) OP Gait Assessment Comments Gait Comments Over pronation in standing PT-OP-K Range of Motion Start: 05/18/21 13:45 Freq: Status: Active Protocol: Document 05/18/21 13:45 AMB (Rec: 05/21/21 14:41 AMB [email or web address]) Ankle and Foot Goniometric Range of Motion Ankle and Foot ROM Limitations Comments Good hip, knee and ankle mobility throughout PT-OP-M Strength Start: 05/18/21 13:45 Freq: Status: Active Protocol: Document 05/18/21 13:45 AMB (Rec: 05/21/21 14:41 AMB [email or web address]) Hip Strength Hip Manual Muscle Testing Right Flexion (L2) 4+ Good+ Extension (S1) 4 Good Abduction 4 Good Left Flexion (L2) 4+ Good+ Extension (S1) 4+ Good+ Abduction 4 Good Ankle/Foot Strength Ankle and Foot Manual Muscle Testing Right Dorsiflexion (L4) 4- Good- Plantarflexion (S1) 4 Good Inversion 4 Good Eversion (S1) 4 Good Comments mild discomfort with dorsiflexion bilaterally Left Dorsiflexion (L4) 4- Good- Plantarflexion (S1) 4 Good Inversion 4 Good Eversion (S1) 4 Good PT-OP-Q Treatments Start: 05/18/21 13:45 Freq: Status: Active Protocol: Document 07/11/21 16:00 AW (Rec: 07/11/21 16:16 AW [id number]) Therapeutic Exercises Sidelying Exercises hip abduction Sidelying Exercise Name hip abduction Side bilateral Resistance AROM Reps/Minutes x12 Sitting Exercises eccentric knee flexion Sitting Exercise Name eccentric knee flexion Side left Resistance TB3 Reps/Minutes 8 x 2 Comments good fatigue but no pain ankle inversion/eversion Sitting Exercise Name ankle inversion/eversion Side bilateral Resistance level 3 Equipment Used TB Reps/Minutes x15 Standing Exercises TKE Standing Exercise Name TKE Side bilateral Resistance TB3 Reps/Minutes x12 bosu step up Standing Exercise Name bosu step up Side bilateral Equipment Used 2 x 10 Reps/Minutes focus ankle stability, faded UE contact on rails step down Standing Exercise Name foward, lateral Side bilateral Equipment Used 6 step Reps/Minutes x10 each direction Comments no left knee discomfort Stretch Standing Exercise Name calf stretch on ALISHA Side bilateral Reps/Minutes 2' heel raise Standing Exercise Name heel raise (//, toe in, toe out) Side bilateral Equipment Used 6 step Reps/Minutes x10 Comments reviewed HEP Gait Training Gait Activity uneven surface no AD Description uneven surface no AD Level of Assistance SBA Surface grass, grassy hills Distance/Duration 5 min Treatment Focus elizabeth, stance time, stability Comments Pt able to navigate up and down grassy hills with some hesitation but no pain. Antalgic gait with decreased LLE stance time. stairs Description receiprocal steps Device Used B HR Level of Assistance 4 x 5 reps Treatment Focus eccentric ROM LLE Comments Reduced dependence on rails. Pt reports she is now able to carry a coffee cup on the stairs. Improved ROM and eccentric control. PT-OP-T Assessment and Plan Start: 05/18/21 13:45 Freq: Status: Active Protocol: Document 07/11/21 16:00 AW (Rec: 07/11/21 16:16 AW [id number]) Physical Therapy Assessment Goals Three Impairment HEP Short Term Goal (STG) Deepak will be independent and consistent with her HEP to stretch and strengthen her bilateral LEs. 07/11/21 MET STG Duration 4 weeks Two Impairment Mobility Short Term Goal (STG) Deepak will move from sit to stand with 2/10 pain or less. STG Duration 4 weeks Senior Care Goal (LTG) Deepak will move from sit to stand without pain in her lower legs. LTG Duration 8 weeks One Impairment Pain Short Term Goal (STG) Deepak will play pickleball 4x/ week without an increase in her baseline pain. STG Duration 4 weeks Assessment Summary Assessment Treatment focused on ankle stability with uneven surface training. Pt tolerated well but continues with sense of hesitation on grass. Will plan to assess goals at next tx and possibly extend POC to work toward improved stability and confidence, return to sport. Physical Therapy Plan Frequency and Duration Frequency of Treatment 2x/Week Duration of Treatment 8 weeks Plan of Care Start Date 05/18/21 Plan of Care End Date 07/13/21 Therapeutic Interventions Therapeutic Interventions Gait Training,Home Exercise Program,Manual Therapy, Neuromuscular Re-education, Self-Care/Home Management,Soft Tissue Mobilization, Therapeutic Activities, Therapeutic Exercises Modalities Cold Pack/Ice Massage,Electric Stimulation,Hot Packs, Ultrasound Next Visit Focus/Plan Next Note Type Progress Note Next Visit Plan Assess goals, initiate power training for LLE to improve mm recruitment and pt confidence . Consider quick plantar flexion on sled. Progress POC: Continue stair training due to pt reporting step-to pattern since L ITB and gastroc injuries.
--- NOTE | 2021-07-13 12:19 | PT.OTN ---
Current Diagnoses Iliotibial band syndrome, unspecified leg (07/13/21) Anterior tibial syndrome, unspecified leg (07/13/21) Pain in unspecified lower leg (07/13/21) Physical Therapy Treatment Note PT-OP-A Visit Information Start: 05/18/21 13:45 Freq: Status: Active Protocol: Document 07/13/21 12:00 AW (Rec: 07/13/21 12:09 AW [id number]) Out-Patient Physical Therapy Visit Information Visit Information Visit Type Progress Note Visit Start Time 11:20 Visit Stop Time 12:00 Total Visit Minutes 40 Visit Number 13 Number of OPERATING TABLE ASSEMBLER Visits 0 PT-OP-B Current Condition Start: 05/18/21 13:45 Freq: Status: Active Protocol: Document 05/18/21 13:45 AMB (Rec: 05/18/21 13:58 AMB [id number]) Current Condition History of Current Condition Onset Date A month Current Complaints bilateral gastelum/lateral thigh pain History of Current Condition Bilateral leg pain seems to be associated with pickle ball. Stopped for a week and that seemed to help. Pain has been going on for at least a month . A month ago couldn't walk for a couple days. Has been playing pickleball for a year for 2-3 times per week, then increased to 4-5x/week and that's when pain started, doesn't hurt during pickle ball, but a few hours later hurts, variable nature sometimes hurts sometimes doesn't. Getting up from sitting/ squatting are quite challenging right now. Outside of thighs and shins, shins are the worst, both left and right. Prior Treatments and Tests Tried new shoes. Treatment Goals Patient/Caregiver Goals Play pickleball without bilateral leg pain Prior Functional Status Baseline Function- ADL's Independent Baseline Function- Mobility Independent Current Functional Impairments (Reported) Functional Limitations- ADL's Difficulty moving from sit to stand especially after having been sitting for a while Personal Factors Other Personal Factors That May Effect history of plantar fasciitis, Therapy/Recovery over pronation PT-OP-C Subjective Start: 05/18/21 13:45 Freq: Status: Active Protocol: Document 07/13/21 12:00 AW (Rec: 07/13/21 12:09 AW [id number]) OP-PT Subjective Patient Comments Patient Comments I've been able to do step downs with my taller stairs much more easily. But my left knee feels achey today. PT-OP-F Manual Assessment Start: 05/18/21 13:45 Freq: Status: Active Protocol: Document 05/18/21 13:45 AMB (Rec: 05/21/21 14:41 AMB [email or web address]) Manual Assessments Soft Tissue Assessment Soft Tissue Mobility Assessment Tenderness over tibialis anterior, calves, and IT band, worst at tibialis anterior PT-OP-G Mobility & Gait Start: 05/18/21 13:45 Freq: Status: Active Protocol: Document 05/18/21 13:45 AMB (Rec: 05/21/21 14:41 AMB [email or web address]) OP Gait Assessment Comments Gait Comments Over pronation in standing PT-OP-K Range of Motion Start: 05/18/21 13:45 Freq: Status: Active Protocol: Document 05/18/21 13:45 AMB (Rec: 05/21/21 14:41 AMB [email or web address]) Ankle and Foot Goniometric Range of Motion Ankle and Foot ROM Limitations Comments Good hip, knee and ankle mobility throughout PT-OP-M Strength Start: 05/18/21 13:45 Freq: Status: Active Protocol: Document 05/18/21 13:45 AMB (Rec: 05/21/21 14:41 AMB [email or web address]) Hip Strength Hip Manual Muscle Testing Right Flexion (L2) 4+ Good+ Extension (S1) 4 Good Abduction 4 Good Left Flexion (L2) 4+ Good+ Extension (S1) 4+ Good+ Abduction 4 Good Ankle/Foot Strength Ankle and Foot Manual Muscle Testing Right Dorsiflexion (L4) 4- Good- Plantarflexion (S1) 4 Good Inversion 4 Good Eversion (S1) 4 Good Comments mild discomfort with dorsiflexion bilaterally Left Dorsiflexion (L4) 4- Good- Plantarflexion (S1) 4 Good Inversion 4 Good Eversion (S1) 4 Good PT-OP-Q Treatments Start: 05/18/21 13:45 Freq: Status: Active Protocol: Document 07/13/21 12:00 AW (Rec: 07/13/21 12:09 AW [id number]) Cardio Equipment Recumbent Bicycle Duration (Minutes) 5 Resistance 5 Seat Position 6 Therapeutic Exercises Supine Exercises hip flexor stretch Supine Exercise Name tracie test position Side left Reps/Minutes 30 SH x 3 active SLR Supine Exercise Name active SLR - toes at 1200, 1000, 0200 Side left Reps/Minutes x10 each orientation Comments HEP Sidelying Exercises hip abduction Sidelying Exercise Name hip abduction Side bilateral Resistance AROM Reps/Minutes x12 Standing Exercises TKE Standing Exercise Name TKE Side left Resistance TB3 Comments irritated L knee - dc'ed step down Standing Exercise Name foward, lateral Side bilateral Equipment Used 6 step Comments unable without pain today Stretch Standing Exercise Name calf stretch on ALISHA Side bilateral Reps/Minutes 2' 2 Standing Exercise Name tibials ant stretch- Reviewed HEP Reps/Minutes 30x2 Comments reviewed HEP Manual Therapy Treatment Soft Tissue Mobilization 1 Body Location left anterior tib, lateral gastroc Mobilization Type Rolling,Sustained Pressure, Trigger Point Release Intensity/Depth Moderate Body Position Supine Comments Improved tissue quality post STM at anterior tib Self-Care/Home Management Treatment Education Patient Education Home Exercise Program Activities Self-Care/Home Management Activities Consolidated HEP and advised pt to continue stretching daily and divide strength exercises and alternate days. PT-OP-T Assessment and Plan Start: 05/18/21 13:45 Freq: Status: Active Protocol: Document 07/13/21 12:00 AW (Rec: 07/13/21 12:16 AW [email or web address]) Physical Therapy Assessment Goals Three Impairment HEP Short Term Goal (STG) Deepak will be independent and consistent with her HEP to stretch and strengthen her bilateral LEs. 07/11/21 MET STG Duration 4 weeks Two Impairment Mobility Short Term Goal (STG) Deepak will move from sit to stand with 2/10 pain or less. STG Duration 4 weeks Mcc Goal (LTG) Deepak will move from sit to stand without pain in her lower legs. 07/13/21 PROGRESSING - pt reports 2/10 pain today LTG Duration 5 weeks - 08/18/21 One Impairment Pain Short Term Goal (STG) Deepak will play pickleball 4x/ week without an increase in her baseline pain. 07/13/21 - Pt no longer concerned with return to pickleball. STG Duration 4 weeks Upholstery Sewer Goal (LTG) Pt will return to cycling and walking for exercise 4x/week wtihout increase in baseline pain LTG Duration 5 weeks - 08/18/21 Progress Towards Goals Progress Towards Goals Progressing Toward Goals Progress Comments Pt has progressed with mobility independence but continues to use single trekking pole for longer distance ambulation. Gait is antalgic and pain in left knee continues. Pt would benefit from continued therapy to improve stability and strength for return to recreational activities. Assessment Summary Assessment Pt presents with irritable left knee pain today which limits her participation. Focused on manual therapy for pain management and gentle exercise in supported position . Plan to reassess at next visit. Goals and POC updated today. Physical Therapy Plan Frequency and Duration Frequency of Treatment 1x/Week Duration of Treatment 5 weeks Plan of Care Start Date 07/13/21 Plan of Care End Date 08/18/21 Therapeutic Interventions Therapeutic Interventions Gait Training,Home Exercise Program,Manual Therapy, Neuromuscular Re-education, Self-Care/Home Management,Soft Tissue Mobilization, Therapeutic Activities, Therapeutic Exercises Modalities Cold Pack/Ice Massage,Electric Stimulation,Hot Packs, Ultrasound Next Visit Focus/Plan Next Note Type Treatment Note Next Visit Plan Reassess for knee pain. Initiate power training for LLE to improve mm recruitment and pt confidence. Consider quick plantar flexion on sled. Progress POC: Continue stair training due to pt reporting step-to pattern since L ITB and gastroc injuries.
--- NOTE | 2021-07-13 12:19 | PT.OPPOC ---
Physical, Occupational & Speech Therapy At [facility] Current Diagnoses Iliotibial band syndrome, unspecified leg (07/13/21) Anterior tibial syndrome, unspecified leg (07/13/21) Pain in unspecified lower leg (07/13/21) Visit Care Team Role Provider Type NATALIIA Foley Attending Provider Advanced Meat Apprentice Primary Care Provider Referring Provider Specialty: Family Practice Address: [address] [place] [address], [id number] Email: [email or web address] Plan Of Care PT-OP-T Assessment and Plan Start: 05/18/21 13:45 Freq: Status: Active Protocol: Document 07/13/21 12:00 AW (Rec: 07/13/21 12:16 AW [email or web address]) Physical Therapy Assessment Goals Three Impairment HEP Short Term Goal (STG) Deepak will be independent and consistent with her HEP to stretch and strengthen her bilateral LEs. 07/11/21 MET STG Duration 4 weeks Two Impairment Mobility Short Term Goal (STG) Deepak will move from sit to stand with 2/10 pain or less. STG Duration 4 weeks Personal Lines Appraiser Goal (LTG) Deepak will move from sit to stand without pain in her lower legs. 07/13/21 PROGRESSING - pt reports 2/10 pain today LTG Duration 5 weeks - 08/18/21 One Impairment Pain Short Term Goal (STG) Deepak will play pickleball 4x/ week without an increase in her baseline pain. 07/13/21 - Pt no longer concerned with return to pickleball. STG Duration 4 weeks Personal Lines Appraiser Goal (LTG) Pt will return to cycling and walking for exercise 4x/week wtihout increase in baseline pain LTG Duration 5 weeks - 08/18/21 Progress Towards Goals Progress Towards Goals Progressing Toward Goals Progress Comments Pt has progressed with mobility independence but continues to use single trekking pole for longer distance ambulation. Gait is antalgic and pain in left knee continues. Pt would benefit from continued therapy to improve stability and strength for return to recreational activities. Assessment Summary Assessment Pt presents with irritable left knee pain today which limits her participation. Focused on manual therapy for pain management and gentle exercise in supported position . Plan to reassess at next visit. Goals and POC updated today. Physical Therapy Plan Frequency and Duration Frequency of Treatment 1x/Week Duration of Treatment 5 weeks Plan of Care Start Date 07/13/21 Plan of Care End Date 08/18/21 Therapeutic Interventions Therapeutic Interventions Gait Training,Home Exercise Program,Manual Therapy, Neuromuscular Re-education, Self-Care/Home Management,Soft Tissue Mobilization, Therapeutic Activities, Therapeutic Exercises Modalities Cold Pack/Ice Massage,Electric Stimulation,Hot Packs, Ultrasound Next Visit Focus/Plan Next Note Type Treatment Note Next Visit Plan Reassess for knee pain. Initiate power training for LLE to improve mm recruitment and pt confidence. Consider quick plantar flexion on sled. Progress POC: Continue stair training due to pt reporting step-to pattern since L ITB and gastroc injuries. Plan of Care Dates Plan of Care Start Date 07/13/21 Plan of Care End Date 08/18/21 Electronically Signed by: Leda Thomas, PT 07/13/21 1218 Please Sign and Return: I have reviewed this Plan of Care and certify that the skilled therapy services above are required to meet the patient?s needs. Physician Signature Date Printed Name and Credentials Clinical Instructor Signature Printed Name and Credentials
--- NOTE | 2021-07-18 15:17 | PT.OTN ---
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 Stopped for a week and that seemed to help. Pain has been going on for at least a month . A month ago couldn't walk for a couple days. Has been playing pickleball for a year for 2-3 times per week, then increased to 4-5x/week and that's when pain started, doesn't hurt during pickle ball, but a few hours later hurts, variable nature sometimes hurts sometimes doesn't. Getting up from sitting/ squatting are quite challenging right now. Outside of thighs and shins, shins are the worst, both left and right. Prior Treatments and Tests Tried new shoes. Treatment Goals Patient/Caregiver Goals Play pickleball without bilateral leg pain Prior Functional Status Baseline Function- ADL's Independent Baseline Function- Mobility Independent Current Functional Impairments (Reported) Functional Limitations- ADL's Difficulty moving from sit to stand especially after having been sitting for a while Personal Factors Other Personal Factors That May Effect history of plantar fasciitis, Therapy/Recovery over pronation PT-OP-C Subjective Start: 05/18/21 13:45 Freq: Status: Active Protocol: Document 07/18/21 14:32 SP (Rec: 07/18/21 15:49 SP [id number]) OP-PT Subjective Patient Comments Patient Comments Pt arrived without AD this date. Still having annoying ache behind her L knee. No significant gains since last tx noted. Patient Reported Progress Same PT-OP-F Manual Assessment Start: 05/18/21 13:45 Freq: Status: Active Protocol: Document 05/18/21 13:45 AMB (Rec: 05/21/21 14:41 AMB [email or web address]) Manual Assessments Soft Tissue Assessment Soft Tissue Mobility Assessment Tenderness over tibialis anterior, calves, and IT band, worst at tibialis anterior PT-OP-G Mobility & Gait Start: 05/18/21 13:45 Freq: Status: Active Protocol: Document 05/18/21 13:45 AMB (Rec: 05/21/21 14:41 AMB [email or web address]) OP Gait Assessment Comments Gait Comments Over pronation in standing PT-OP-K Range of Motion Start: 05/18/21 13:45 Freq: Status: Active Protocol: Document 05/18/21 13:45 AMB (Rec: 05/21/21 14:41 AMB [email or web address]) Ankle and Foot Goniometric Range of Motion Ankle and Foot ROM Limitations Comments Good hip, knee and ankle mobility throughout PT-OP-M Strength Start: 05/18/21 13:45 Freq: Status: Active Protocol: Document 05/18/21 13:45 AMB (Rec: 05/21/21 14:41 AMB [email or web address]) Hip Strength Hip Manual Muscle Testing Right Flexion (L2) 4+ Good+ Extension (S1) 4 Good Abduction 4 Good Left Flexion (L2) 4+ Good+ Extension (S1) 4+ Good+ Abduction 4 Good Ankle/Foot Strength Ankle and Foot Manual Muscle Testing Right Dorsiflexion (L4) 4- Good- Plantarflexion (S1) 4 Good Inversion 4 Good Eversion (S1) 4 Good Comments mild discomfort with dorsiflexion bilaterally Left Dorsiflexion (L4) 4- Good- Plantarflexion (S1) 4 Good Inversion 4 Good Eversion (S1) 4 Good PT-OP-Q Treatments Start: 05/18/21 13:45 Freq: Status: Active Protocol: Document 07/18/21 14:32 SP (Rec: 07/18/21 15:49 SP [id number]) Cardio Equipment Recumbent Bicycle Duration (Minutes) 5 Resistance 5 Seat Position 6 Other LEs only, Gym Equipment Shuttle Recovery SL squat Details knee alignment with toes, heel press Resistance #37 Shuttle Recovery Platform Stable Reps/Time 2x8 reps calf raises Details B eccentric calf raises Resistance 50# Shuttle Recovery Platform Stable Reps/Time 3x5- 8 reps- felt better slow pacing than quick Therapeutic Exercises Sitting Exercises self STMs Sitting Exercise Name quad, HS, calf Side left Equipment Used rolling pin Comments decreased achiness but still little stiffness during recumbent bike Standing Exercises step down Standing Exercise Name forward, lateral, retro Side bilateral Equipment Used 6 step, light contact rail Reps/Minutes x10 Comments pain free lat, retro, band walk Standing Exercise Name side stepping ( reviewed HEP) Side bilateral Resistance TB personal #3 at ankles Reps/Minutes 20ft x3 laps each direction Comments good foot clearance, occasional cues for trunk no side lean Stretch Standing Exercise Name calf stretch lunge at wall and off step w/ contact rail Side bilateral Reps/Minutes 2' Comments cued no bouncing, good resulted stretches- painfree sit<> stand Standing Exercise Name eccentric chair taps Equipment Used 18 chair Reps/Minutes 2x5 reps Comments arms front> across chest, cued forward chair, hip hinge- pain free Manual Therapy Treatment Joint Mobilizations L knee Joint posterior drawer, fibular head , patella (med/ lat) Direction A>P Grade II Body Position seated Reps/Duration 1 min total Comments good feedback results PT-OP-T Assessment and Plan Start: 05/18/21 13:45 Freq: Status: Active Protocol: Document 07/18/21 14:32 SP (Rec: 07/18/21 15:49 SP [id number]) Physical Therapy Assessment Goals Three Impairment HEP Short Term Goal (STG) Deepak will be independent and consistent with her HEP to stretch and strengthen her bilateral LEs. 07/11/21 MET STG Duration MET Two Impairment Mobility Short Term Goal (STG) Deepak will move from sit to stand with 2/10 pain or less. 07/13/21 MET STG Duration MET Skilled Nursing Goal (LTG) Deepak will move from sit to stand without pain in her lower legs. 07/13/21 PROGRESSING - pt reports 2/10 pain today LTG Duration 5 weeks - 08/18/21 One Impairment Pain Short Term Goal (STG) Deepak will play pickleball 4x/ week without an increase in her baseline pain. 07/13/21 - Pt no longer concerned with return to pickleball. STG Duration 4 weeks Skilled Nursing Goal (LTG) Pt will return to cycling and walking for exercise 4x/week wtihout increase in baseline pain LTG Duration 5 weeks - 08/18/21 Assessment Summary Assessment Pt reports of L knee achiness when arrived. Improved post self STMs using rolling pin to quad, hs, ITB, calf during pause of recumbent bike mobility. Pt did not respond well to quick PF on shuttle recovery, found good tolerance with slower movement not > 8 reps due to starts to over recruit calf and set tightness discomfort. Pt stated calf little sore end tx post shuttle recovery. Physical Therapy Plan Frequency and Duration Frequency of Treatment 1x/Week Duration of Treatment 5 weeks Plan of Care Start Date 07/13/21 Plan of Care End Date 08/18/21 Therapeutic Interventions Therapeutic Interventions Gait Training,Home Exercise Program,Manual Therapy, Neuromuscular Re-education, Self-Care/Home Management,Soft Tissue Mobilization, Therapeutic Activities, Therapeutic Exercises Modalities Cold Pack/Ice Massage,Electric Stimulation,Hot Packs, Ultrasound Next Visit Focus/Plan Next Note Type Treatment Note Next Visit Plan Reassess for L knee and calf achiness. Review shuttle recovery. POC: Initiate power training for LLE to improve mm recruitment and pt confidence. Progress POC: Continue stair training due to pt reporting step-to pattern since L ITB and gastroc injuries.
--- NOTE | 2021-08-01 09:45 | PT.OTN ---
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 Stopped for a week and that seemed to help. Pain has been going on for at least a month . A month ago couldn't walk for a couple days. Has been playing pickleball for a year for 2-3 times per week, then increased to 4-5x/week and that's when pain started, doesn't hurt during pickle ball, but a few hours later hurts, variable nature sometimes hurts sometimes doesn't. Getting up from sitting/ squatting are quite challenging right now. Outside of thighs and shins, shins are the worst, both left and right. Prior Treatments and Tests Tried new shoes. Treatment Goals Patient/Caregiver Goals Play pickleball without bilateral leg pain Prior Functional Status Baseline Function- ADL's Independent Baseline Function- Mobility Independent Current Functional Impairments (Reported) Functional Limitations- ADL's Difficulty moving from sit to stand especially after having been sitting for a while Personal Factors Other Personal Factors That May Effect history of plantar fasciitis, Therapy/Recovery over pronation PT-OP-C Subjective Start: 05/18/21 13:45 Freq: Status: Active Protocol: Document 08/01/21 09:03 SP (Rec: 08/01/21 09:48 SP [id number]) OP-PT Subjective Patient Comments Patient Comments Pt reported has been stiff lately even after when up moving around. Son needed utilizing her rolling pin so hasnt' had to assist her. Pt stated doing am/ pm exercises and step mgt but forgot to to yesterday. PT-OP-F Manual Assessment Start: 05/18/21 13:45 Freq: Status: Active Protocol: Document 05/18/21 13:45 AMB (Rec: 05/21/21 14:41 AMB [email or web address]) Manual Assessments Soft Tissue Assessment Soft Tissue Mobility Assessment Tenderness over tibialis anterior, calves, and IT band, worst at tibialis anterior PT-OP-G Mobility & Gait Start: 05/18/21 13:45 Freq: Status: Active Protocol: Document 05/18/21 13:45 AMB (Rec: 05/21/21 14:41 AMB [email or web address]) OP Gait Assessment Comments Gait Comments Over pronation in standing PT-OP-K Range of Motion Start: 05/18/21 13:45 Freq: Status: Active Protocol: Document 05/18/21 13:45 AMB (Rec: 05/21/21 14:41 AMB [email or web address]) Ankle and Foot Goniometric Range of Motion Ankle and Foot ROM Limitations Comments Good hip, knee and ankle mobility throughout PT-OP-M Strength Start: 05/18/21 13:45 Freq: Status: Active Protocol: Document 05/18/21 13:45 AMB (Rec: 05/21/21 14:41 AMB [email or web address]) Hip Strength Hip Manual Muscle Testing Right Flexion (L2) 4+ Good+ Extension (S1) 4 Good Abduction 4 Good Left Flexion (L2) 4+ Good+ Extension (S1) 4+ Good+ Abduction 4 Good Ankle/Foot Strength Ankle and Foot Manual Muscle Testing Right Dorsiflexion (L4) 4- Good- Plantarflexion (S1) 4 Good Inversion 4 Good Eversion (S1) 4 Good Comments mild discomfort with dorsiflexion bilaterally Left Dorsiflexion (L4) 4- Good- Plantarflexion (S1) 4 Good Inversion 4 Good Eversion (S1) 4 Good PT-OP-Q Treatments Start: 05/18/21 13:45 Freq: Status: Active Protocol: Document 08/01/21 09:03 SP (Rec: 08/01/21 09:48 SP [id number]) Cardio Equipment Bicycle (Upright) Duration (Minutes) 8 Resistance 7 Seat Position 5 Other 62 RPMs, 2.8 Miles Gym Equipment Shuttle Recovery SL squat Details knee alignment with toes, heel press Resistance #37 Shuttle Recovery Platform Stable Reps/Time 2x10 reps (alot less achiness post rolling) calf raises Details B eccentric calf raises Resistance 50# Shuttle Recovery Platform Stable Reps/Time 310 reps- felt better slow pacing than quick Therapeutic Exercises Standing Exercises SLS star taps Standing Exercise Name added to HEP Side left Equipment Used 4 cones (12, 2, 4, 6 o'clock) Comments cued Soft L knee alignment with toes bosu step up Standing Exercise Name bosu step up Side bilateral Resistance 1 UE light contact rail. Equipment Used 2 x 10 Reps/Minutes focus ankle stability, faded UE contact on rails step down Standing Exercise Name forward, lateral, retro Side bilateral Equipment Used 8 step, light contact rail Reps/Minutes 2x10 Comments pain free forward, lat, retro, Gait Training Gait Activity stairs Description LLE step ups Level of Assistance 4 laps 4 stairs Treatment Focus eccentric ROM LLE Comments Reduced dependence on rails. Pt reports she is now able to carry a coffee cup on the stairs. Improved ROM and eccentric control. No UE support required Manual Therapy Treatment Soft Tissue Mobilization 1 Body Location left anterior tib, lateral gastroc, distal ITB Mobilization Type Cross-Friction,Instrument Assisted,Rolling Intensity/Depth Moderate Body Position Hooklying Comments Improved tissue quality post STM calf, ITB (while on shuttle press) Self-Care/Home Management Treatment Education Patient Education Home Exercise Program Other Education Initiated SLS star taps. PT-OP-T Assessment and Plan Start: 05/18/21 13:45 Freq: Status: Active Protocol: Document 08/01/21 09:03 SP (Rec: 08/01/21 09:48 SP [id number]) Physical Therapy Assessment Goals Three Impairment HEP Short Term Goal (STG) Deepak will be independent and consistent with her HEP to stretch and strengthen her bilateral LEs. 07/11/21 MET STG Duration MET Two Impairment Mobility Short Term Goal (STG) Deepak will move from sit to stand with 2/10 pain or less. 07/13/21 MET STG Duration MET Spray Rig Operator Goal (LTG) Deepak will move from sit to stand without pain in her lower legs. 07/13/21 MET- pt reports 2/10 pain today 08/01/21: progressing- pt states has to be careful standing up without UEs, legs in good position reports achiness, not really pain. MET LTG Duration MET One Impairment Pain Short Term Goal (STG) Deepak will play pickleball 4x/ week without an increase in her baseline pain. 07/13/21 - Pt no longer concerned with return to pickleball. STG Duration 4 weeks Penitentiary Goal (LTG) Pt will return to cycling and walking for exercise 4x/week wtihout increase in baseline pain 08/01/21: progressing: LTG Duration 5 weeks - 08/18/21 Assessment Summary Assessment Pt had good response to upright bike warm up today. She had less calf achiness on shuttle recovery post instrument and manual. Pt responded well step mgt post manual and shuttle recovery mobility warm up. Pt improved eccentric step down and no pain SLS star tap added today to HEP. Physical Therapy Plan Frequency and Duration Frequency of Treatment 1x/Week Duration of Treatment 5 weeks Plan of Care Start Date 07/13/21 Plan of Care End Date 08/18/21 Therapeutic Interventions Therapeutic Interventions Gait Training,Home Exercise Program,Manual Therapy, Neuromuscular Re-education, Self-Care/Home Management,Soft Tissue Mobilization, Therapeutic Activities, Therapeutic Exercises Modalities Cold Pack/Ice Massage,Electric Stimulation,Hot Packs, Ultrasound Next Visit Focus/Plan Next Note Type Treatment Note Next Visit Plan Assess initiated star taps added last tx. POC: Reassess for L knee and calf achiness. Review shuttle recovery. POC: Initiate power training for LLE to improve mm recruitment and pt confidence. Progress POC: Continue stair training due to pt reporting step-to pattern since L ITB and gastroc injuries.
--- NOTE | 2021-08-08 09:45 | PT.OTN ---
Current Diagnoses Iliotibial band syndrome, unspecified leg (08/08/21) Anterior tibial syndrome, unspecified leg (08/08/21) Pain in unspecified lower leg (08/08/21) Physical Therapy Treatment Note PT-OP-A Visit Information Start: 05/18/21 13:45 Freq: Status: Active Protocol: Document 08/08/21 09:04 SP (Rec: 08/08/21 11:01 SP [id number]) Out-Patient Physical Therapy Visit Information Visit Information Visit Type Treatment Note Visit Start Time 09:04 Visit Stop Time 09:45 Total Visit Minutes 41 Visit Number 16 Number of WARP PLACER Visits 3 PT-OP-B Current Condition Start: 05/18/21 13:45 Freq: Status: Active Protocol: Document 05/18/21 13:45 AMB (Rec: 05/18/21 13:58 AMB [id number]) Current Condition History of Current Condition Onset Date A month Current Complaints bilateral gastelum/lateral thigh pain History of Current Condition Bilateral leg pain seems to be associated with pickle ball. Stopped for a week and that seemed to help. Pain has been going on for at least a month . A month ago couldn't walk for a couple days. Has been playing pickleball for a year for 2-3 times per week, then increased to 4-5x/week and that's when pain started, doesn't hurt during pickle ball, but a few hours later hurts, variable nature sometimes hurts sometimes doesn't. Getting up from sitting/ squatting are quite challenging right now. Outside of thighs and shins, shins are the worst, both left and right. Prior Treatments and Tests Tried new shoes. Treatment Goals Patient/Caregiver Goals Play pickleball without bilateral leg pain Prior Functional Status Baseline Function- ADL's Independent Baseline Function- Mobility Independent Current Functional Impairments (Reported) Functional Limitations- ADL's Difficulty moving from sit to stand especially after having been sitting for a while Personal Factors Other Personal Factors That May Effect history of plantar fasciitis, Therapy/Recovery over pronation PT-OP-C Subjective Start: 05/18/21 13:45 Freq: Status: Active Protocol: Document 08/08/21 09:04 SP (Rec: 08/08/21 11:01 SP [id number]) OP-PT Subjective Patient Comments Patient Comments Pt stated is doing ok, getting frustrated still getting achiness and many times in middle of the night and interrupts sleep. Pt reports did something this week haven't been able to do in a while, couldn't remember what it was. Pt stated walks [employer] [place] in [place] daily level terrain. Over the weekend hiked with friend [place] trails uneven level ground not attempt inclines for about 1 hr but states has to pay attention eccentric stepping for awareness of stability. PT-OP-F Manual Assessment Start: 05/18/21 13:45 Freq: Status: Active Protocol: Document 05/18/21 13:45 AMB (Rec: 05/21/21 14:41 AMB [email or web address]) Manual Assessments Soft Tissue Assessment Soft Tissue Mobility Assessment Tenderness over tibialis anterior, calves, and IT band, worst at tibialis anterior PT-OP-G Mobility & Gait Start: 05/18/21 13:45 Freq: Status: Active Protocol: Document 05/18/21 13:45 AMB (Rec: 05/21/21 14:41 AMB [email or web address]) OP Gait Assessment Comments Gait Comments Over pronation in standing PT-OP-K Range of Motion Start: 05/18/21 13:45 Freq: Status: Active Protocol: Document 05/18/21 13:45 AMB (Rec: 05/21/21 14:41 AMB [email or web address]) Ankle and Foot Goniometric Range of Motion Ankle and Foot ROM Limitations Comments Good hip, knee and ankle mobility throughout PT-OP-M Strength Start: 05/18/21 13:45 Freq: Status: Active Protocol: Document 05/18/21 13:45 AMB (Rec: 05/21/21 14:41 AMB [email or web address]) Hip Strength Hip Manual Muscle Testing Right Flexion (L2) 4+ Good+ Extension (S1) 4 Good Abduction 4 Good Left Flexion (L2) 4+ Good+ Extension (S1) 4+ Good+ Abduction 4 Good Ankle/Foot Strength Ankle and Foot Manual Muscle Testing Right Dorsiflexion (L4) 4- Good- Plantarflexion (S1) 4 Good Inversion 4 Good Eversion (S1) 4 Good Comments mild discomfort with dorsiflexion bilaterally Left Dorsiflexion (L4) 4- Good- Plantarflexion (S1) 4 Good Inversion 4 Good Eversion (S1) 4 Good PT-OP-Q Treatments Start: 05/18/21 13:45 Freq: Status: Active Protocol: Document 08/08/21 09:04 SP (Rec: 08/08/21 11:01 SP [id number]) Cardio Equipment Recumbent Bicycle Duration (Minutes) 5 Resistance 5 Seat Position 5 Other LEs only, 1.36 miles Treadmill Duration (Minutes) 5 Speed 2.0 walk> light jog 3.0 20 sec w/ UE contact Incline 0> 1.5 walk w/ arm swing Other cued try not UE contact Gym Equipment Shuttle Recovery bilat squat Resistance 50#> 62# Shuttle Recovery Platform Stable Reps/Time x10, concentric quick, eccentric return knee flexion SL squat Details knee alignment with toes, heel press Resistance #37 Shuttle Recovery Platform Stable Reps/Time 2x10 reps (alot less achiness post rolling) calf raises Details B eccentric calf raises Resistance 50# Shuttle Recovery Platform Stable Reps/Time 3x10 reps- felt better slow pacing than quick Therapeutic Exercises Sitting Exercises self STMs Sitting Exercise Name calf, HS, quad Side left Equipment Used rolling pin, seated on shuttle recovery Comments decreased achiness post roll pin use for performane on shuttle recovery Standing Exercises HS Stretch Side left Equipment Used bottom of step Reps/Minutes 30 Comments hip hinge contact rail (sign/ tree out in community) SLS star taps Standing Exercise Name reviewed HEP Side bilateral Equipment Used 4 cones (12, 2, 4, 6 o'clock) Reps/Minutes 5 reps x3 sets alternate LE Comments cued Soft L knee alignment with toes- good response Stretch Standing Exercise Name dynamic eccentric calf stretch off step w/ contact rail Side bilateral Reps/Minutes 2' Comments cued good resulted stretches- painfree Neuro Re-Education Treatment Balance Activities uneven obstacle course Equipment oval cushions, 2 wedge, square foam, 4 hurdles Comments 5 laps SBA, cued slow confident pacing during SL stance time, trunk deviations but self recovery improved with laps PT-OP-T Assessment and Plan Start: 05/18/21 13:45 Freq: Status: Active Protocol: Document 08/08/21 09:04 SP (Rec: 08/08/21 11:01 SP [id number]) Physical Therapy Assessment Goals Three Impairment HEP Short Term Goal (STG) Deepak will be independent and consistent with her HEP to stretch and strengthen her bilateral LEs. 07/11/21 MET STG Duration MET Two Impairment Mobility Short Term Goal (STG) Deepak will move from sit to stand with 2/10 pain or less. 07/13/21 MET STG Duration MET Fdc Goal (LTG) Deepak will move from sit to stand without pain in her lower legs. 07/13/21 MET- pt reports 2/10 pain today 08/01/21: progressing- pt states has to be careful standing up without UEs, legs in good position reports achiness, not really pain. MET LTG Duration MET One Impairment Pain Short Term Goal (STG) Deepak will play pickleball 4x/ week without an increase in her baseline pain. 07/13/21 - Pt no longer concerned with return to pickleball. 08/07/21: progressing: able to walk about 1 hr on uneven but level trails, did not achiness but didn' limit her. STG Duration 4 weeks Fdc Goal (LTG) Pt will return to cycling and walking for exercise 4x/week wtihout increase in baseline pain 08/01/21: progressing: LTG Duration 5 weeks - 08/18/21 Assessment Summary Assessment Pt had good response to more dynamic activities this tx. Continues have achiness during shuttle recovery improves with manual rolling pin use. Progressed eccentric calf raises, review star glides with slider this tx and improved stability and quicker pacing near rail but not needed. Able to improved balance stepping as laps progressed uneven obstacle course. She reported felt better end of tx. Physical Therapy Plan Frequency and Duration Frequency of Treatment 1x/Week Duration of Treatment 5 weeks Plan of Care Start Date 07/13/21 Plan of Care End Date 08/18/21 Therapeutic Interventions Therapeutic Interventions Gait Training,Home Exercise Program,Manual Therapy, Neuromuscular Re-education, Self-Care/Home Management,Soft Tissue Mobilization, Therapeutic Activities, Therapeutic Exercises Modalities Cold Pack/Ice Massage,Electric Stimulation,Hot Packs, Ultrasound Next Visit Focus/Plan Next Note Type Treatment Note Next Visit Plan Assess response to recumbent bike/ TM, shuttle rec, star glides, uneven surface walking / stepping last tx. Continue TM warm up, uneven surface dynamic balance/ gait activities. POC: Reassess for L knee and calf achiness. POC: Initiate power training for LLE to improve mm recruitment and pt confidence. Progress POC: Continue stair training due to pt reporting step-to pattern since L ITB and gastroc injuries.
--- NOTE | 2021-08-17 14:28 | PT.OTN ---
Current Diagnoses Iliotibial band syndrome, unspecified leg (08/17/21) Anterior tibial syndrome, unspecified leg (08/17/21) Pain in unspecified lower leg (08/17/21) Physical Therapy Treatment Note PT-OP-A Visit Information Start: 05/18/21 13:45 Freq: Status: Active Protocol: Document 08/17/21 14:19 AW (Rec: 08/17/21 14:25 AW [id number]) Out-Patient Physical Therapy Visit Information Visit Information Visit Type Discharge Summary Visit Start Time 13:46 Visit Stop Time 14:19 Total Visit Minutes 33 Visit Number 17 Number of SPACE SCHEDULER Visits 0 PT-OP-B Current Condition Start: 05/18/21 13:45 Freq: Status: Active Protocol: Document 05/18/21 13:45 AMB (Rec: 05/18/21 13:58 AMB [id number]) Current Condition History of Current Condition Onset Date A month Current Complaints bilateral gastelum/lateral thigh pain History of Current Condition Bilateral leg pain seems to be associated with pickle ball. Stopped for a week and that seemed to help. Pain has been going on for at least a month . A month ago couldn't walk for a couple days. Has been playing pickleball for a year for 2-3 times per week, then increased to 4-5x/week and that's when pain started, doesn't hurt during pickle ball, but a few hours later hurts, variable nature sometimes hurts sometimes doesn't. Getting up from sitting/ squatting are quite challenging right now. Outside of thighs and shins, shins are the worst, both left and right. Prior Treatments and Tests Tried new shoes. Treatment Goals Patient/Caregiver Goals Play pickleball without bilateral leg pain Prior Functional Status Baseline Function- ADL's Independent Baseline Function- Mobility Independent Current Functional Impairments (Reported) Functional Limitations- ADL's Difficulty moving from sit to stand especially after having been sitting for a while Personal Factors Other Personal Factors That May Effect history of plantar fasciitis, Therapy/Recovery over pronation PT-OP-C Subjective Start: 05/18/21 13:45 Freq: Status: Active Protocol: Document 08/17/21 14:19 AW (Rec: 08/17/21 14:25 AW [id number]) OP-PT Subjective Patient Comments Patient Comments I'm having days without pain and sleep is uninterrupted. Doing more yoga stretches. When I start to feel achy, I give my leg some love and it feels better. Patient Reported Progress Improving PT-OP-F Manual Assessment Start: 05/18/21 13:45 Freq: Status: Active Protocol: Document 05/18/21 13:45 AMB (Rec: 05/21/21 14:41 AMB [email or web address]) Manual Assessments Soft Tissue Assessment Soft Tissue Mobility Assessment Tenderness over tibialis anterior, calves, and IT band, worst at tibialis anterior PT-OP-G Mobility & Gait Start: 05/18/21 13:45 Freq: Status: Active Protocol: Document 05/18/21 13:45 AMB (Rec: 05/21/21 14:41 AMB [email or web address]) OP Gait Assessment Comments Gait Comments Over pronation in standing PT-OP-K Range of Motion Start: 05/18/21 13:45 Freq: Status: Active Protocol: Document 05/18/21 13:45 AMB (Rec: 05/21/21 14:41 AMB [email or web address]) Ankle and Foot Goniometric Range of Motion Ankle and Foot ROM Limitations Comments Good hip, knee and ankle mobility throughout PT-OP-M Strength Start: 05/18/21 13:45 Freq: Status: Active Protocol: Document 05/18/21 13:45 AMB (Rec: 05/21/21 14:41 AMB [email or web address]) Hip Strength Hip Manual Muscle Testing Right Flexion (L2) 4+ Good+ Extension (S1) 4 Good Abduction 4 Good Left Flexion (L2) 4+ Good+ Extension (S1) 4+ Good+ Abduction 4 Good Ankle/Foot Strength Ankle and Foot Manual Muscle Testing Right Dorsiflexion (L4) 4- Good- Plantarflexion (S1) 4 Good Inversion 4 Good Eversion (S1) 4 Good Comments mild discomfort with dorsiflexion bilaterally Left Dorsiflexion (L4) 4- Good- Plantarflexion (S1) 4 Good Inversion 4 Good Eversion (S1) 4 Good PT-OP-Q Treatments Start: 05/18/21 13:45 Freq: Status: Active Protocol: Document 08/17/21 14:19 AW (Rec: 08/17/21 14:25 AW [id number]) Cardio Equipment Recumbent Bicycle Duration (Minutes) 5 Resistance 5 Seat Position 5 Other LEs only, miles Therapeutic Exercises Sitting Exercises self STMs Sitting Exercise Name calf, HS, quad Side left Equipment Used rolling pin, seated on shuttle recovery Comments setup for activity Standing Exercises SLS star taps Standing Exercise Name reviewed HEP Side bilateral Equipment Used 4 cones (12, 2, 4, 6 o'clock) Reps/Minutes 5 reps x3 sets alternate LE Comments cued Soft L knee alignment with toes- good response bosu step up Standing Exercise Name bosu step up, step up and over Side bilateral Resistance 1 UE light contact rail. Equipment Used 2 x 10 Reps/Minutes focus ankle stability, faded UE contact on rails step down Standing Exercise Name forward, lateral, retro Side bilateral Equipment Used 8 step, light contact rail Reps/Minutes 2x10 Comments pain free forward, lat, retro, Stretch Standing Exercise Name dynamic eccentric calf stretch off step w/ contact rail Side bilateral Reps/Minutes 2' Comments cued good resulted stretches- painfree sit<> stand Standing Exercise Name eccentric chair taps Equipment Used 18 chair Reps/Minutes 2x5 reps Comments arms front> across chest, cued forward chair, hip hinge- pain free Gait Training Gait Activity stairs Description LLE step ups Level of Assistance 6 laps 4 stairs Treatment Focus eccentric ROM LLE Comments No rails. Pt carried 4 step to simulate carrying laundry up and down stairs Manual Therapy Treatment Soft Tissue Mobilization 1 Body Location left anterior tib, lateral gastroc, distal ITB Mobilization Type Cross-Friction,Instrument Assisted,Rolling Intensity/Depth Moderate Body Position Hooklying Comments Improved tissue quality post STM calf, ITB PT-OP-T Assessment and Plan Start: 05/18/21 13:45 Freq: Status: Active Protocol: Document 08/17/21 14:19 AW (Rec: 08/17/21 14:28 AW [email or web address]) Physical Therapy Assessment Goals Three Impairment HEP Short Term Goal (STG) Deepak will be independent and consistent with her HEP to stretch and strengthen her bilateral LEs. 07/11/21 MET STG Duration MET Two Impairment Mobility Short Term Goal (STG) Deepak will move from sit to stand with 2/10 pain or less. 07/13/21 MET STG Duration MET Fdc Goal (LTG) Deepak will move from sit to stand without pain in her lower legs. 07/13/21 MET- pt reports 2/10 pain today 08/01/21: progressing- pt states has to be careful standing up without UEs, legs in good position reports achiness, not really pain. MET LTG Duration MET One Impairment Pain Short Term Goal (STG) Deepak will play pickleball 4x/ week without an increase in her baseline pain. 07/13/21 - Pt no longer concerned with return to pickleball. 08/07/21: progressing: able to walk about 1 hr on uneven but level trails, did not achiness but didn' limit her. STG Duration 4 weeks Fdc Goal (LTG) Pt will return to cycling and walking for exercise 4x/week wtihout increase in baseline pain 08/01/21: progressin08/17/21 MET LTG Duration 5 weeks - 08/18/21 Assessment Summary Assessment Pt is not playing pickleball as she lacks full confidence in her left leg but has returned to hiking, cycling, and treadmill workouts. She is motivated and independent with HEP. Appropriate for discharge. Physical Therapy Plan Therapeutic Interventions Therapeutic Interventions Gait Training,Home Exercise Program,Manual Therapy, Neuromuscular Re-education, Self-Care/Home Management,Soft Tissue Mobilization, Therapeutic Activities, Therapeutic Exercises Modalities Cold Pack/Ice Massage,Electric Stimulation,Hot Packs, Ultrasound Discharge Physical Therapy Discharge Reasons Goals Met Discharge Comments Pt has met all goals except those that are pickleball- related. She has returned to hiking, cycling, and treadmill workouts with increased confidence and reduced pain.
== END 2021-08-23 09:21 ==
LOC: PHYS 13:45
PROVIDERS: PCP Nurse Practitioner Family; Referring Provider Nurse Practitioner Family; Visit Provider Nurse Practitioner Family
DX: M79.669 Pain in unspecified lower leg (principal); M76.819 Anterior tibial syndrome, unspecified leg; M76.30 Iliotibial band syndrome, unspecified leg
CPT/HCPCS: 97110; 97112; 97116; 97140; 97161

== ENCOUNTER → 2022-06-05 14:42 | Outpatient (CLI) | payer MEDICARE, OTHER, SELFPAY ==
--- NOTE | 2022-06-05 14:45 | DI.RAD.S_ITS ---
PROCEDURE: XR KNEE RT 3V INDICATIONS: pain TECHNIQUE: 3 views of the knee were acquired. COMPARISON: None. FINDINGS: Bones: No fractures or dislocations. No suspicious bony lesions. Soft tissues: Mild joint effusion. No suspicious soft tissue calcifications. IMPRESSION: No visualized acute fracture or dislocation. However, if clinical concern and/or pain persist, short interval imaging followup in 7-10 days is recommended, as occult injury cannot be definitively excluded. Dictated by: India Fagan M.D. on 06/05/2022 at 17:37 Approved by: India Fagan M.D. on 06/05/2022 at 17:37
== END ==
PROVIDERS: PCP Family Medicine; Referring Provider Family Medicine; Visit Provider Family Medicine
DX: M25.561 Pain in right knee (principal); G89.29 Other chronic pain
CPT/HCPCS: 73562

== ENCOUNTER → 2022-06-07 07:36 | Outpatient (CLI) | payer MEDICARE, OTHER, SELFPAY ==
[2022-06-07 08:57] LABS: Add Manual Diff / Slide Review NO; Basophils Absolute Auto 0 /uL (0-100); Basophils Percent Auto 0.5 % (0-2); Eosinophils Absolute Auto 100 /uL (0-450); Eosinophils Percent Auto 1.8 % (2-4); Hematocrit 40.2 % (36-46); Hemoglobin 13.5 g/dL (12.0-16.0); Lymphocytes Absolute Auto 1600 /uL (1100-4500); Lymphocytes Percent Auto 28.6 % (25-40); Mean Corpuscular HGB Conc 33.5 % (30-36); Mean Corpuscular Hemoglobin 30.6 PG (26-34); Mean Corpuscular Volume 91.3 fL (80-100); Monocytes Absolute Auto 300 /uL (0-900); Monocytes Percent Auto 6.2 % (3-14); Neutrophils Absolute Auto 3400 /uL (1500-7000); Neutrophils Percent Auto 62.9 % (50-75); Platelet Count 192 X10^3/uL (150-400); Red Blood Cell Count 4.41 X10^6/uL (4.0-5.2); Red Cell Distribution Width 14.1 % (11.6-14.8); White Blood Cell Count 5.5 X10^3/uL (4.5-11.0)
[2022-06-07 09:40] LABS: Alanine Aminotransferase 17 IU/L (<35); Albumin 3.9 g/dL (3.5-5.0); Albumin Globulin Ratio 1.5 (1.0-2.8); Alkaline Phosphatase 55 U/L (38-126); Aspartate Aminotransferase 28 IU/L (14-36); BUN Creatinine Ratio 19.7 (6-22); Bilirubin Total 0.5 mg/dL (0.2-1.3); Blood Urea Nitrogen 15 mg/dL (7-17); Calcium 8.9 mg/dL (8.4-10.2); Carbon Dioxide 33 mmol/L (22-32); Chloride 106 mmol/L (98-107); Cholesterol 197 mg/dL (140-199); Estimated Glomerular Filt Rate > 60 mL/min (>60); Globulin 2.6 g/dL (1.7-4.1); Glucose 78 mg/dL (80-110); HDL Cholesterol 63 mg/dL (40-60); HEMOLYSIS < 15 (0-50); LDL Cholesterol Calculated 120 mg/dL (<100); Potassium 4.1 mmol/L (3.4-5.1); Sodium 141 mmol/L (137-145); Total Protein 6.5 g/dL (6.3-8.2); Triglycerides 69 mg/dL (35-150)
[2022-06-07 09:50] LABS: Free T3, Triiodothyronine Free 3.48 pg/mL (2.77-5.27); Free T4, Direct Thyroxine 1.35 ng/dL (0.78-2.19)
[2022-06-07 10:04] LABS: Thyroid Stimulating Hormone 2.82 uIU/mL (0.47-4.68)
== END ==
PROVIDERS: PCP Family Medicine; Referring Provider Family Medicine; Visit Provider Family Medicine
DX: E78.5 Hyperlipidemia, unspecified (principal); F32.0 Major depressive disorder, single episode, mild; M19.90 Unspecified osteoarthritis, unspecified site; M85.80 Other specified disorders of bone density and structure, unspecified site; Z78.0 Asymptomatic menopausal state
CPT/HCPCS: 36415; 80053; 80061; 84439; 84443; 84481; 85025

== ENCOUNTER → 2022-06-26 14:37 | Outpatient (CLI) | payer MEDICARE, OTHER, SELFPAY ==
--- NOTE | 2022-06-26 14:39 | DI.MG.S_ITS ---
BILATERAL DIGITAL SCREENING MAMMOGRAM 3D/2D WITH CAD: 06/26/2022 CLINICAL: Routine screening. Comparison is made to exams dated: 09/23/2019 mammogram - [facility] and 02/11/2012 mammogram - [facility]. There are scattered fibroglandular elements in both breasts. Current study was also evaluated with a Computer Aided Detection (CAD) system. No significant masses, calcifications, or other findings are seen in either breast. There has been no significant interval change. IMPRESSION: NEGATIVE There is no mammographic evidence of malignancy. A 1 year screening mammogram is recommended. Based on the Tyrer Cuzick model (a risk assessment model) the patient's lifetime risk is 5.1% and her 10 year risk is 2.7%. According to the ACR, ACS, and NCCN guidelines, an annual breast MRI exam along with mammogram is recommended if the patient's lifetime risk is 20% or greater. This exam was interpreted at Station ID: [id number]. NOTE: For mammograms, a report in lay terms will be sent to the patient. Approximately 15% of breast malignancies will not be visualized mammographically. In the management of a palpable breast mass, a negative mammogram must not discourage biopsy of a clinically suspicious lesion. Electronically Signed By: Conrado hayes/darline:06/26/2022 17:18:20 letter sent: Normal Exam ACR BI-RADS Category 1: Negative 3341F
== END ==
PROVIDERS: PCP Family Medicine; Referring Provider Family Medicine; Visit Provider Family Medicine
DX: Z12.31 Encounter for screening mammogram for malignant neoplasm of breast (principal)
CPT/HCPCS: 77063; 77067

== ENCOUNTER → 2024-06-09 14:30 | Outpatient (CLI) | payer MEDICARE, OTHER, SELFPAY ==
--- NOTE | 2024-06-09 14:33 | DI.RAD.S_ITS ---
PROCEDURE: XR DEXA AXIAL SKELETON INDICATIONS: osteopenia COMPARISON: [facility], CR, XR DEXA AXIAL SKELETON, 01/09/2021, 15:32. FINDINGS: Lumbar Spine: Bone mineral density 0.974 g/cm2, T score -0.7. There is interval 2.6% decrease in total lumbar spine bone density. Left Hip: Bone mineral density 0.863 g/cm2, T score -0.7. There is interval 0.4% decrease in left hip bone mineral density. Left Femoral Neck: Bone mineral density 0.723 g/cm2, T score -1.1. There is interval 0.2% increase in left femoral neck bone mineral density. Right Hip: Bone mineral density 0.794 g/cm2, T score -1.2. There is interval 1.7% decrease in total right hip bone density. Right Femoral Neck: Bone mineral density 0.672 g/cm2, T score -1.6. There is interval 2.1% decrease in right femoral neck bone mineral density. Left Forearm: Bone mineral density 0.5 A1 g/cm2, T score -1.9. Fracture Risk Calculation (when applicable): 10-year fracture risk of a major osteoporotic fracture 10% and of a hip fracture 1.6%. (T score greater or equal to -1.0 to: NORMAL) (T score from -1.1 to -2.4: OSTEOPENIA) (T score less than or equal to -2.5: OSTEOPOROSIS) IMPRESSION: Osteopenia with increased 10 year fracture risk as above. Follow-up guidelines as follows: Osteoporosis: Consider a repeat DEXA and Vertebral Fracture Assessment (VFA) exam in 2 years or sooner if medically necessary, to reassess this patient's status. Osteopenia: Consider a repeat DEXA in 2-3 years to reassess this patient's status, or if there is a new clinical indication. Normal: Consider a repeat DEXA in 5 years or sooner, or if there is a new clinical indication. All treatment decisions require clinical judgment and consideration of individual patient factors, including patient preferences, comorbidities, previous drug use, risk factors not captured in the FRAX model (e.g., frailty, falls, vitamin D deficiency, increased bone turnover, interval significant decline in bone density ) and possible under- or over-estimation of fracture risk by FRAX. In addition, the NOF Guide recommends that FDA-approved medical therapies be considered in postmenopausal women and men age >= 50 years with a: * Hip or vertebral (clinical or morphometric) fracture * T-score of <=-2.5 at the spine or hip * Ten-year fracture probability by FRAX of >= 3% for hip fracture or >=20% for major osteoporotic fracture. People with diagnosed cases of osteoporosis or at high risk for fracture should have regular bone mineral density tests. For patients eligible for Medicare, routine testing is allowed once every 2 years. The testing frequency can be increased to one year for patients who have rapidly progressing disease, those who are receiving or discontinuing medical therapy to restore bone mass, or have additional risk factors. Dictated by: Nick Lambert M.D. on 06/09/2024 at 18:24 Approved by: Nick Lambert M.D. on 06/09/2024 at 18:27
--- NOTE | 2024-06-09 14:33 | DI.MG.S_ITS ---
BILATERAL DIGITAL SCREENING MAMMOGRAM 3D/2D WITH CAD: 06/09/2024 CLINICAL: Routine screening. Comparison is made to exams dated: 06/26/2022 mammogram, 09/23/2019 mammogram - [facility], and 02/11/2012 mammogram - [facility]. There are scattered areas of fibroglandular density in both breasts (category b / 25%-50% glandular tissue). Current study was also evaluated with a Computer Aided Detection (CAD) system. No significant masses, calcifications, or other findings are seen in either breast. There has been no significant interval change. IMPRESSION: NEGATIVE There is no mammographic evidence of malignancy. A 1 year screening mammogram is recommended. Based on the Tyrer Cuzick model (a risk assessment model) the patient's lifetime risk is 4.6% and her 10 year risk is 2.7%. According to the ACR, ACS, and NCCN guidelines, an annual breast MRI exam along with mammogram is recommended if the patient's lifetime risk is 20% or greater. This exam was interpreted at Station ID: [id number]. NOTE: For mammograms, a report in lay terms will be sent to the patient. Approximately 15% of breast malignancies will not be visualized mammographically. In the management of a palpable breast mass, a negative mammogram must not discourage biopsy of a clinically suspicious lesion. Electronically Signed By: Claudia Vanegas M.D., Ph.D. nick/darline:06/09/2024 16:26:01 letter sent: Normal Exam ACR BI-RADS Category 1: Negative 3341F
== END ==
LOC: MAMMO 14:33
PROVIDERS: PCP Family Medicine; Referring Provider Family Medicine; Visit Provider Family Medicine
DX: Z12.31 Encounter for screening mammogram for malignant neoplasm of breast; R92.323 Mammographic fibroglandular density, bilateral breasts; M85.89 Other specified disorders of bone density and structure, multiple sites; Z78.0 Asymptomatic menopausal state
CPT/HCPCS: 77063; 77067; 77080; 77081

== ENCOUNTER → 2024-06-11 09:07 | Outpatient (CLI) | payer MEDICARE, OTHER, SELFPAY ==
[2024-06-11 10:05] LABS: Cholesterol 213 mg/dL (140-199); HDL Cholesterol 76 mg/dL (40-60); LDL Cholesterol Calculated 122 mg/dL (<100); Triglycerides 73 mg/dL (35-150)
== END ==
PROVIDERS: PCP Family Medicine; Referring Provider Family Medicine; Visit Provider Family Medicine
DX: E78.5 Hyperlipidemia, unspecified (principal)
CPT/HCPCS: 36415; 80061

== ENCOUNTER → 2024-11-09 08:37 | Outpatient (CLI) | payer MEDICARE, OTHER, SELFPAY ==
[2024-11-09 10:48] LABS: Cholesterol 195 mg/dL (140-199); HDL Cholesterol 64 mg/dL (40-60); LDL Cholesterol Calculated 115 mg/dL (<100); Triglycerides 78 mg/dL (35-150)
== END ==
LOC: LAB 08:38
PROVIDERS: PCP Family Medicine; Referring Provider Family Medicine; Visit Provider Family Medicine
DX: E78.5 Hyperlipidemia, unspecified (principal)
CPT/HCPCS: 36415; 80061

== ENCOUNTER → 2025-05-03 09:16 | Outpatient (CLI) | payer MEDICARE, OTHER, SELFPAY ==
[2025-05-03 10:23] LABS: Cholesterol 218 mg/dL (140-199); HDL Cholesterol 72 mg/dL (40-60); LDL Cholesterol Calculated 135 mg/dL (<100); Triglycerides 55 mg/dL (35-150)
== END ==
PROVIDERS: PCP Family Medicine; Referring Provider Family Medicine; Visit Provider Family Medicine
DX: E78.5 Hyperlipidemia, unspecified (principal)
CPT/HCPCS: 36415; 80061